=== PATIENT | female | born 2000 | race Caucasian/White ===

== ENCOUNTER 2019-06-20 16:35 | Inpatient (IN) ==
[2019-06-20] MEDS ORDERED: MORPHINE IV ONE (17:28)
[2019-06-20] MEDS ORDERED: ZOFRAN IV ONE (17:28)
--- NOTE | 2019-06-20 17:28 | Diag Imaging Result Doc PS360 ---
EXAM: ANKLE COMPLETE RIGHT 06/20/2019 HISTORY: twisted ankle 4 days ago TECHNIQUE: Right ankle three views COMMENT: There is generalized soft tissue swelling. There is an apparent separate ossification center at the tip of the fibula. No evidence of fracture or dislocation is present. There is a bone island in the cuboid. IMPRESSION: Soft tissue swelling. No evidence of acute bony disease. Electronically signed by Ranjeet Olvera 06/20/2019 5:26 PM
[2019-06-20] MEDS ORDERED: NS 1,000 ML IV ONE ×2 (17:29→18:35)
--- NOTE | 2019-06-20 17:36 | EKG Report ---
Test Performed on : 06/20/2019 5:01:17 PM Test Reason : tachycardia Blood Pressure : / mmHG Vent. Rate : 139 BPM Atrial Rate : 139 BPM P-R Int : 128 ms QRS Dur : 074 ms QT Int : 278 ms P-R-T Axes : 058 054 032 degrees QTc Int : 423 ms Sinus tachycardia. Otherwise normal ECG When compared with ECG of 15-JUL-2018 09:11, Vent. rate has increased BY 57 BPM Unconfirmed Result
--- NOTE | 2019-06-20 18:04 | PROVIDER DOCUMENTATION ---
This chart was entered by Darya Mac Scribe, acting as scribe for Saskia Beck CRNP. HPI-General Adult - General Chief Complaint: Extremity Injury Stated Complaint: FOOT INJURY Time Seen by Provider: 06/20/19 17:00 Source: patient Allergies/Adverse Reactions: Patient Allergies Allergy/AdvReac Type Severity Reaction Status Date / Time No Known Allergies Allergy Verified 01/30/18 23:35 Home Medications: Home Medication List Medication Instructions Recorded Confirmed Last Taken Type NK [No Home Medications] 06/20/19 06/20/19 Unknown History - History of Present Illness -Gen Adult Nature of Presenting Problems: 18 y/o female presents to ED with R foot pain/swelling/redness onset 4 days ago. Pt denies injury. Pt has needle cherise to R AC upon exam. She states it is from the hospital last week. Pt has hx heroin use. Pt is alert and oriented. Location of Pain/Injury: reports: feet Pain Radiation: reports: no radiation Quality of Pain: reports: aching Severity: reports: moderate Onset/Duration: reports: 4 days ago Timing: reports: still present Context/Activities at Onset: reports: none Modifying Factors: worse with: movement, palpation Associated Symptoms: reports: other (R foot pain/swelling/redness) Similar Symptoms Previously?: No Recently seen or treated by another doctor?: No Review of Systems - Adult - REVIEW OF SYSTEMS - ADULT Constitutional: denies: chills, fever Eyes: reports: no symptoms reported Ears, Nose, Mouth & Throat: reports: no symptoms reported Cardiovascular: denies: chest pain, palpitations Respiratory: denies: cough, shortness of breath Gastrointestinal: denies: abdominal pain, diarrhea, nausea, vomiting Genitourinary: reports: no symptoms reported Musculoskeletal: reports: other (R foot pain/swelling/redness). denies: back pain, joint pain Integumentary: reports: no symptoms reported Neurological: denies: dizziness/vertigo, seizure Psychiatric: reports: no symptoms reported Endocrine: reports: no symptoms reported Hematologic/Lymphatic: reports: no symptoms reported Allergic/Immunologic: reports: no symptoms reported All Other Systems: Reviewed and Negative Past History - Adult - PAST MEDICAL HISTORY-ADULT Review of Records: reports: Old Records Reviewed, Nursing Assessment Review, Medications Reviewed Major Childhood Illnesses: reports: denies history Cardiovascular: reports: denies history Respiratory: reports: denies history Gastrointestinal: reports: denies history Obstetrical/Gynecological: reports: denies history Genitourinary: reports: denies history Musculoskeletal: reports: denies history Neurological: reports: denies history Psychiatric: reports: psychiatric problems Endocrine/Immune: reports: denies history Other Conditions: reports: denies history - PRIOR SURGERIES/PROCEDURES Surgical/Procedure History: reports: tonsillectomy - IMMUNIZATION STATUS Childhood Immunizations: See Nurse Assessment Flu Vaccine: See Nurse Assessment - FAMILY HISTORY Family History: reviewed, not pertinent - SOCIAL HISTORY Smoking: less than 1 pack/day Provider spent 3-5 mins advising pt. on dangers of tobacco.: Discussed manners to quit use, and f/u contacts for add'l counseling. Substance Use: opiates Alcohol Use Frequency: never Living Situation: family Physical Exam-General - PHYSICAL EXAM-ADULT Initial Vital Signs Reviewed: Yes - CONSTITUTIONAL General Appearance: appears well, alert, other (tearful) - EYES Eyes: PERRL/EOMI, pink conjunctivae - HEAD, EARS, NOSE, MOUTH & THROAT HENMT: normocephalic/atraumatic, moist mucous membranes, normal ENT inspection - NECK Neck: non-tender, full range of motion - RESPIRATORY Respiratory: chest non-tender, lungs clear, normal breath sounds - CARDIOVASCULAR Cardiovascular: tachycardia - MUSCULOSKELETAL Back Exam: normal inspection, no CVA tenderness, no vertebral tenderness Extremity: normal range of motion, erythema, swelling, tenderness, other (R foot red, warm, swollen, and tender). negative: pulse deficit - SKIN Integumentary: normal color, warm/dry, erythema, swelling, tenderness, warm, other (R foot red, warm, swollen, and tender) - NEUROLOGIC Neurologic: grossly normal - PSYCHIATRIC Psych/Mental Status: normal mood/affect, normal thought content, normal thought process, oriented x 3, tearful Progress - PLAN OF CARE/RESULTS Progress/Plan/Lab Results: Vital Signs - 8 hr 06/20/19 16:48 Temperature 98 F Pulse Rate 143 H Respiratory Rate 18 Blood Pressure 126/83 O2 Sat by Pulse Oximetry 100 Orders Category Date Time Status Cardiac Monitoring DIRECTED Care 06/20/19 17:27 Active IV Insertion ORDERED Care 06/20/19 17:27 Active Notify Physician As Ordered Care 06/20/19 17:27 Active Nursing- Obtain EKG ONCE Care 06/20/19 16:55 Active ANKLE COMPLETE RIGHT [RAD] Stat Exams 06/20/19 16:55 Completed BLOOD CULTURE [BLDCUL] Stat Lab 06/20/19 17:27 Uncollected CBC WITH DIFF [HEME] Stat Lab 06/20/19 17:27 Uncollected CK PROFILE [SP CHEM] Stat Lab 06/20/19 17:27 Uncollected COMPREHENSIVE METABOLIC PANEL [CHEM] Stat Lab 06/20/19 17:27 Uncollected LACTATE, PLASMA [CHEM] Q3H Lab 06/20/19 17:30 Uncollected LACTATE, PLASMA [CHEM] Q3H Lab 06/20/19 20:30 Uncollected LACTATE, PLASMA [CHEM] Q3H Lab 06/20/19 23:30 Uncollected MAGNESIUM [CHEM] Stat Lab 06/20/19 17:27 Uncollected PROTIME WITH INR [COAG] Stat Lab 06/20/19 17:27 Uncollected PTT [COAG] Stat Lab 06/20/19 17:27 Uncollected TROPONIN T Stat Lab 06/20/19 17:[address] W/POSS RFLX CULT [URINALYSIS] Stat Lab 06/20/19 17:27 Uncollected URINE DRUG SCREEN PL Stat Lab 06/20/19 17:28 Uncollected 0.9% Sodium Chloride Inj [Ns] 1,000 ml Med 06/20/19 17:29 Active IV 999 mls/hr Morphine Med 06/20/19 17:28 Discontinued 4 mg IV NOW ONE Ondansetron [Zofran] Med 06/20/19 17:28 Discontinued 4 mg IV NOW ONE Oxygen Device Stat Oth 06/20/19 17:27 Active EKG [EKG] Stat Ther 06/20/19 16:55 Ordered Result Diagrams: 06/20/19 17:40 06/20/19 17:40 - EKG 1 Time of EKG reading by physician:: 17:01 EKG Read and Signed by:: Conrado Gutierrez EKG Interpretation (*Must complete 3 of following elements*): Normal Rate: 139 Rhythm: Sinus tach [place]: normal QRS: normal PA Interval: normal ST Wave: normal - XRAY 1 XRAY: Right XRAY Study: Ankle Impression: See EMR Report ([facility] - [address], [address], [place] [address] [facility] - [address], [place] [address] Department of Imaging Patient: LUKASZ RUIZ Date: 06/20/19MR#: [id number] : 2000ADM Status: PRE ERAcct#: [id number] Age/Sex: 18/FRoom/Bed: Loc: P.ED Ordering Physician: Conrado Gutierrez MD Family Physician: Sukhi Hernández MD Reason for Procedure: twisted ankle 4 days ago Signed EXAM: ANKLE COMPLETE RIGHT 06/20/2019 HISTORY: twisted ankle 4 days ago TECHNIQUE: Right ankle three views COMMENT: There is generalized soft tissue swelling. There is an apparent separate ossification center at the tip of the fibula. No evidence of fracture or dislocation is present. There is a bone island in the cuboid. IMPRESSION: Soft tissue swelling. No evidence of acute bony disease. Electronically signed by Ranjeet Olvera 06/20/2019 5:26 PM 06/20/19 1726 Interpreting Physician: Ranjeet Olvera MD Dictated Date/Time: 06/20/19 1729 cc: Conrado Gutierrez MD; Sukhi Hernández MD) 2 XRAY Study: Chest Impression: See EMR Report (EXAM: CHEST-1 VIEW 06/20/2019 HISTORY: sepsis protocol TECHNIQUE: Erect AP portable at 1807 COMMENT: There is alveolar opacity partially silhouetting the left hemidiaphragm. There is platelike opacity in the left lower lobe. There are no previous studies. IMPRESSION: Lingular pneumonia and atelectasis versus pneumonia in the left lower lobe. Electronically signed by Ranjeet Olvera 06/20/2019 6:03 PM 06/20/19 1803 Interpreting Physician: Ranjeet Olvera MD Dictated Date/Time: 06/20/19 1802 cc: Saskia Beck; Sukhi Hernández MD) - CONSULTS/PCP/HOSPITALIST Notification #1 *Consult/PCP/Hospitalist*: dr mejia Time Discussed: 18:35 Consult Disposition: Admit Departure - Departure Date of Disposition Decision: 06/20/19 Time of Disposition Decision: 18:34 DIAGNOSIS: Septic arthritis, Pneumonia, Cellulitis Disposition: ADMITTED INPATIENT 09 Certified Medical Emergency: Emergent Condition: Stable Referrals and Follow-Ups: Sukhi Hernández MD [Primary Care Provider] - Discharge Education: Steps to Quit Smoking, [id number] - Critical Care Note This patient required my direct & personal management of CC.: No Attestation - Physician/ HERNANDO Attestation Patient care was provided by Advanced Practice Provider:: Yes Advanced Practice Provider:: Saskia Beck Advanced Practice Provider documentation review:: The Mid-level provider documentation, treatment plan and medical decision making was reviewed by the physician who agrees with all treatment and medical decision making by the P. The physician spent face to face time with patient:: Yes Advanced Practice Provider documentation review:: Supervising physician onsite and consulted in the evaluation and care of this patient. The physician did have a face to face encounter with the patient. This chart was documented by the indicated scribe, (Darya Mac Scribe) and accurately reflects the services I performed and decisions made by me, Saskia Beck CRNP, as attested by the provider's signature.
[2019-06-20 18:11] LABS: BASO# 0.03 X1000 (0.0-0.2); BASO% 0.2 % (0.0-0.8); EOS# 0.17 X1000 (0.0-0.7); HEMATOCRIT 35.1 % (37.0-47.0); HEMOGLOBIN 11.6 g/dL (12.0-16.0); IMM GRAN% 1.1 % (0.0-0.5); LYMPH# 1.21 X1000 (1.2-3.4); LYMPH% 6.8 % (20.5-51.1); MCH 27.6 PG (27-31); MCV 83.6 FL (81-99); MONO% 9.5 % (1.7-9.3); MPV 8.2 FL (7.4-10.4); NEUT# 14.55 X1000 (1.4-6.5); NEUT% 81.4 % (42.2-75.2); PLT 492 X1000 (130-400); RDW 14.8 % (11.5-14.5); WBC 17.86 X1000 (4.8-10.8)
[2019-06-20] MEDS ORDERED: VANCOMYCIN 1 GM/NS 1 GM/250 ML IVPB IV ONE ×2 (18:12→22:00)
[2019-06-20] MEDS ORDERED: ROCEPHIN 1 GM in NS 50 ML IV ONE (18:12)
[2019-06-20 18:13] LABS: INR 1.06; PROTIME 14.3 Seconds (11.0-16.0)
[2019-06-20 18:14] LABS: BILIRUBIN URINE NEGATIVE (NEGATIVE); BLOOD URINE NEGATIVE (NEGATIVE); GLUCOSE URINE NEGATIVE (NEGATIVE); KETONE URINE NEGATIVE (NEGATIVE); NITRITE URINE NEGATIVE (NEGATIVE); PROTEIN URINE TRACE mg/dL (NEGATIVE); UROBILINOGEN URINE NORMAL
[2019-06-20 18:14] LABS: PTT 42.2 Seconds (22.3-41.8)
[2019-06-20 18:15] LABS: CLARITY CLEAR (CLEAR); COLOR YELLOW; LEUKOCYTES URINE TRACE (NEGATIVE)
[2019-06-20 18:16] LABS: URINE SOURCE CLEAN CATCH
[2019-06-20 18:17] LABS: ANISOCYTOSIS 1+; BANDS 3 % (0-1); LYMPHS 10 % (21-51); MONO 5 % (1-9); SEGS 82 % (42-75)
[2019-06-20 18:17] LABS: URINE BACTERIA 1+ /HFP; URINE CAST NONE SEEN /LPF; URINE CRYSTAL NONE SEEN /HPF; URINE EPITHELIAL CELLS >10 /HPF (<10); URINE RBC <10 /HPF (<10); URINE YEAST NONE SEEN /HPF
[2019-06-20 18:24] LABS: UR AMPHETAMINES QUAL NONE DETECTED (NONE DETECT); UR BARBITUATES QUAL NONE DETECTED (NONE DETECT); UR BENZODIAZEPIN QUAL NONE DETECTED (NONE DETECT); UR CANNABINOIDS QUAL PRESUMPTIVE POSITIVE (NONE DETECT); UR COCAINE QUAL NONE DETECTED (NONE DETECT); UR METHADONE QUAL NONE DETECTED (NONE DETECT); UR METHAMPHETAMINE QUAL NONE DETECTED (NONE DETECT); UR OPIATES QUAL NONE DETECTED (NONE DETECT); UR OXYCODONE QUAL NONE DETECTED (NONE DETECT); UR PCP QUAL NONE DETECTED (NONE DETECT); UR PROPOXYPHENE QUAL NONE DETECTED (NONE DETECT); UR TCA QUAL PRESUMPTIVE POSITIVE (NONE DETECT)
[2019-06-20 18:26] LABS: AGAP 17; ALBUMIN 3.7 g/dL (3.5-5.0); ALKALINE PHOSPHATASE 177 U/L (32-104); BUN 6 mg/dL (8-22); CHLORIDE 97 mmol/L (98-107); CK PROFILE 22 U/L (24-173); COSMO 271; CREATININE 0.5 mg/dL (0.5-0.9); ESTIMATED GFR > 60; GLUCOSE 95 mg/dL (70-104); GOT 15 U/L (10-30); GPT 18 U/L (10-36); MAGNESIUM 1.5 mg/dL (1.5-2.7); POTASSIUM 4.3 mmol/L (3.5-5.1); SODIUM 137 mmol/L (136-145); TCO2 24 mmol/L (25-35); TOTAL PROTEIN 7.3 g/dL (6.3-8.3)
[2019-06-20] MEDS ORDERED: MORPHINE IV PRN (18:35)
[2019-06-20] MEDS ORDERED: DILAUDID IV ONE (18:47)
[2019-06-20] MEDS: TYLENOL PO PRN (19:51)
[2019-06-20] MEDS ORDERED: DILAUDID IV SCH (20:25)
[2019-06-20] MEDS ORDERED: VANCOMYCIN IV PER PHARMACY MISC SCH (20:25)
[2019-06-20] MEDS ORDERED: TORADOL IV ONE (22:16)
[2019-06-20] MEDS: SEROQUEL PO PRN (22:25)
[2019-06-20] MEDS: DILAUDID IV PRN (23:58)
[2019-06-21] MEDS: DILAUDID IV PRN ×7 (02:59→23:43)
[2019-06-21] MEDS: TYLENOL PO PRN ×3 (03:17→21:09)
[2019-06-21] MEDS: VANCOMYCIN 1,400 MG in NS 250 ML IV SCH ×2 (09:23→21:09)
[2019-06-21] MEDS: TORADOL IV PRN ×2 (11:14→18:21)
--- NOTE | 2019-06-21 11:32 | HISTORY AND PHYSICAL ---
PRIMARY CARE PHYSICIAN: Dr. Hernández. CHIEF COMPLAINT: Right foot pain and swelling. HISTORY OF PRESENTING ILLNESS: This is a 18-year-old female, who presented to [facility] ER with complaints of right foot pain, swelling, and redness for 4 days that had progressively worsened. Denies any recent injury. Her workup showed a right ankle x-ray with soft tissue swelling, a chest x-ray that showed lingular pneumonia and atelectasis versus pneumonia in the left lower lobe, with a white blood cell count of 17.86. Her urine drug screen was presumptive positive for tricyclics and cannabinoids. She states that she has had a history of heroin abuse, but has been clean for some time now, but was noted to have a needle cherise to her right AC upon exam, but states that was from being in the hospital last week, but we do not have any records of her being in the [facility] this past week so she is being admitted for further evaluation and treatment. PAST MEDICAL HISTORY: Psychiatric problems and polysubstance abuse. PAST SURGICAL HISTORY: Tonsillectomy. FAMILY HISTORY: Reviewed and noncontributory. SOCIAL HISTORY: She currently lives with family. Smokes a half a pack of cigarettes a day. Denied any alcohol use and substance abuse. Her urine drug screen was positive for tricyclics and cannabinoids. She has had a history also of heroin abuse with a noted needle cherise to her right AC, but denies any heroin use currently. DIAGNOSTIC STUDIES: Laboratory data showed a white blood cell count of 17.86, hemoglobin 11.6, hematocrit 35.1, platelets 492,000. PT 14.3, INR 1.06. Sodium 137, potassium 4.3, chloride 97, CO2 of 24, BUN of 6, creatinine of 0.5, glucose of 95. Uric acid of 1.5. Magnesium 1.5. Creatine kinase of 22, troponin of less than 0.010. Plasma lactate of 2. Urinalysis was negative except for 1+ bacteria and greater than 10 epithelial cells so was most likely contaminated. Urine drug screen was presumptive positive for tricyclics and cannabinoids. Her blood cultures came back 2/2 positive with gram-positive cocci. REVIEW OF SYSTEMS: She denied any fever. She has had chills. Denied any blurred vision, dizziness, chest pain, coughing, shortness of breath. She denied any abdominal pain, constipation, diarrhea, or burning or hurting with urination. She is positive for pain to her right foot. PHYSICAL EXAMINATION: VITAL SIGNS: On arrival she had a temperature of 98 degrees, pulse of 143, respirations 18, blood pressure 126/83, and she does remain tachycardic this morning at 140. GENERAL: This is a 18-year-old female, who is sitting up in the bed and answers questions appropriately. HEMNT: Normocephalic, atraumatic. Normal ENT inspection. Oropharynx and nares are clear. EYES: Pupils are equal, round, and reactive to light and accommodation. Extraocular movements are intact. NECK: Normal inspection. Normal range of motion. LUNGS: Clear to auscultation bilaterally with equal lung expansion and chest wall movement. HEART: Tachycardic. No murmurs, rubs, or gallops. ABDOMEN: Soft, nontender, nondistended. Bowel sounds are present x4 quadrants. MUSCULOSKELETAL: She has 5/5 strength x4. EXTREMITIES: She is noted to her right foot to have erythema, edema, and warmth to touch. NEUROLOGICAL: The cranial nerves 2 through 12 appear grossly intact. ASSESSMENT: 1. Septic arthritis. 2. Bacteremia. 3. Leukocytosis. 4. Left lower lobe pneumonia. 5. Tobacco abuse. 6. Polysubstance abuse. PLAN: She was admitted to the medical unit at [place], placed on a regular diet. Her urine culture is pending. Blood cultures have grown out gram-positive cocci x2, so we are awaiting that sensitivity. She is on vancomycin per Pharmacy protocol, Rocephin 1 gram IV q.24 h., Dilaudid 1 mg IV q.3 h. p.r.n. for pain 7/10 to 10/10,m [place] 10 mg 1 p.o. q.3 h. p.r.n. for a pain of 1/10 to 6/10. We will also give some Toradol 30 mg IV q.6 h. p.r.n. for a pain of 5/10 to 7/10. Further orders after seen by attending and we will recheck a CBC, BMP in the a.m. Dictated by WOODROW Blanco for Noe Morton MD cc: WOODROW Blanco MD
[2019-06-21] MEDS: NS 1,000 ML IV SCH ×2 (12:31→23:43)
[2019-06-21] MEDS: NORCO-10 PO PRN (14:58)
[2019-06-21] MEDS: ROCEPHIN 1 GM in NS 50 ML IV SCH (17:08)
--- NOTE | 2019-06-21 19:09 | HISTORY AND PHYSICAL ---
ADDENDUM: Patient seen and examined by myself. Full note dictated and discussed with nurse practitioner. Patient presented to the hospital with pain and swelling in her right foot for the last several days, continued to worsen. We are going to admit her to the hospital, place her on antibiotics. She certainly may need an I and D if this does not improve. We will use Toradol as this helps, and will follow. Please see full note. cc: Noe Morton MD
[2019-06-22] MEDS: TORADOL IV PRN ×4 (01:49→18:10)
[2019-06-22] MEDS: DILAUDID IV PRN ×6 (03:36→21:57)
[2019-06-22] MEDS: TYLENOL PO PRN ×2 (05:00→10:59)
[2019-06-22 07:50] LABS: AGAP 11; BUN 6 mg/dL (8-22); CALCIUM 7.9 mg/dL (8.8-10.2); CHLORIDE 102 mmol/L (98-107); COSMO 268; CREATININE 0.4 mg/dL (0.5-0.9); ESTIMATED GFR > 60; GLUCOSE 99 mg/dL (70-104); POTASSIUM 3.6 mmol/L (3.5-5.1); SODIUM 135 mmol/L (136-145); TCO2 22 mmol/L (25-35)
[2019-06-22] MEDS: NS 1,000 ML IV SCH ×3 (09:15→15:36)
[2019-06-22] MEDS: VANCOMYCIN 1,400 MG in NS 250 ML IV SCH (09:17)
[2019-06-22 09:19] LABS: BASO# 0.02 X1000 (0.0-0.2); BASO% 0.1 % (0.0-0.8); EOS# 0.08 X1000 (0.0-0.7); EOS% 0.5 % (0.0-10.0); HEMATOCRIT 26.6 % (37.0-47.0); HEMOGLOBIN 8.8 g/dL (12.0-16.0); IMM GRAN# 0.15 X1000 (0.0-0.04); IMM GRAN% 0.9 % (0.0-0.5); LYMPH# 1.37 X1000 (1.2-3.4); LYMPH% 7.8 % (20.5-51.1); MCH 27.5 PG (27-31); MCHC 33.1 g/dL (33-37); MCV 83.1 FL (81-99); MONO# 1.57 X1000 (0.11-0.59); MPV 8.3 FL (7.4-10.4); NEUT# 14.28 X1000 (1.4-6.5); NEUT% 81.7 % (42.2-75.2); PLT 467 X1000 (130-400); WBC 17.47 X1000 (4.8-10.8)
[2019-06-22 09:57] LABS: LYMPHS 4 % (21-51); MONO 6 % (1-9); SEGS 90 % (42-75)
[2019-06-22] MEDS: XANAX PO PRN ×2 (10:59→23:47)
--- NOTE | 2019-06-22 14:35 | ORTHOPAEDICS CONSULTATION ---
DATE: 06/22/2019 CHIEF COMPLAINT: Right foot pain and swelling. HISTORY OF PRESENT ILLNESS: This is a 18-year-old female who presented to the [facility] ER with right foot pain, swelling and redness for about 4 days. It has continually gotten worse. She denies any recent injury. Her mother is at bedside at this time and states that she has been having some pain on her right lateral ankle for the past couple days. X-rays were performed in the emergency department and show soft tissue swelling. Chest x-ray showed possible pneumonia with atelectasis in the left lower lobe. A UDS was performed and she was positive for tricyclic antidepressants and marijuana. The patient does report some history of drug use in the past with heroin. PAST MEDICAL HISTORY: Patient states she has some psychiatric problems and substance abuse. PAST SURGICAL HISTORY: She has had a tonsillectomy. FAMILY HISTORY: Noncontributory. SOCIAL HISTORY: The patient lives at home with family. She smokes half pack a day of cigarettes. She denies alcohol use, but does report past substance abuse. DIAGNOSTICS: Labs: White blood cells 17.47, hemoglobin 8.8, hematocrit 26.6, platelets 467,000. Sodium 135, potassium 3.6, chloride 102, BUN 6, creatinine 0.4, uric acid 7.9. Urine showed trace white blood cells, also positive for epithelial cells. UDS showed positive for tricyclics and cannabinoids. REVIEW OF SYSTEMS: A 12-point review of systems was reviewed and all pertinent positives listed in HPI. PHYSICAL EXAMINATION: General: Patient is awake, alert, sitting on the hospital bed, in some acute distress and pain. HEENT: Head is normocephalic, atraumatic. Normal ENT inspection. Eyes: Equal, round and reactive to light. Neck: Supple. Lungs: There is equal chest expansion rise and fall. Heart: There is some tachycardia. Abdomen: Soft, nontender. Musculoskeletal: Right lower extremity is tender to the calf region with some warmth. There is decreased range of motion to the right foot and ankle with some severe edema at this time. There are palpable pedal pulses. There is good capillary refill in toes. There is some redness and ecchymosis noted to the right lateral ankle. I was unable to fully examine the right lower extremity due to her pain tolerance. ASSESSMENT: 1. Septic arthritis. 2. [place] A fracture of the right distal fibula. 3. Left lower lobe pneumonia. 4. Tobacco abuse. 5. Polysubstance abuse. PLAN: We plan to obtain an ultrasound of the right lower extremity at this time. We will go ahead and get an MRI of the right ankle. We will have her transferred to the [facility], at this time. We will continue her antibiotics per the hospitalist. If the swelling does not improve in the right ankle after the MRI, then we will likely obtain an aspiration of the joint and send it off for cultures. We will check back on her later. Dictated by WOODROW El for Torito Bruno MD cc: WOODROW El MD
[2019-06-22] MEDS ORDERED: TYLENOL PO PRN (15:55)
[2019-06-22] MEDS ORDERED: NORCO-10 PO ONE (16:12)
[2019-06-22] MEDS: ROCEPHIN 1 GM in NS 50 ML IV SCH (18:12)
[2019-06-22] MEDS: LOVENOX SUBQ SCH (20:44)
[2019-06-22] MEDS: SEROQUEL PO PRN (20:45)
[2019-06-22] MEDS: NORCO-10 PO PRN (20:45)
[2019-06-22] MEDS ORDERED: VANCOMYCIN 1,400 MG in NS 250 ML IV SCH (21:00)
--- NOTE | 2019-06-22 21:31 | PROGRESS NOTE ---
DATE: 06/22/2019 SUBJECTIVE: Ms. Malone was transferred to [facility] for persistent right lower extremity right foot pain, with marked tachycardia and orthopedic evaluation. At the time of my evaluation, the patient's mother is at bedside. The patient is currently wincing in pain. She denies using any recreational drugs through IV line. She states she used to smoke marijuana and cigarettes. OBJECTIVE: Vital Signs: Currently, temperature of 100.9 degrees, pulse of 145, respiratory rate 30, blood pressure 160/110. She is saturating 97% on 3 L nasal cannula. General: She is in excruciating pain. ORAL CAVITY: Dry.Lungs: Air entry bilaterally equal. No wheeze, rhonchi. She does appear to have left lower lobe crackles. Cardiovascular: S1, S2 normal. Tachycardic. Appears sinus. No murmur or gallop. Abdomen: Soft, nontender. Extremities: No lower extremity edema. She has significant swelling of the right foot and ankle region with ecchymosis. The pulse was dopplerable. She is excruciatingly tender in the right foot and examination is limited. She is able to wiggle her toes. LABS: Suggestive of leukocytosis, normocytic anemia, thrombocytosis. She does appear to have normal kidney function. MICROBIOLOGY: Blood culture positive for gram-positive cocci. Repeat blood cultures have been drawn. ASSESSMENT AND PLAN: Gram-positive sepsis. The source could be left lower lobe pneumonia versus right foot septic arthritis versus osteomyelitis versus intravenous drug use, though patient denies using it recently. Continue intravenous vancomycin and intravenous ceftriaxone, and follow up repeated blood culture results. Continue intravenous fluids with normal saline. Continue intravenous hydromorphone, oral [place], intravenous ketorolac for pain management. I will also follow up with echocardiogram to rule out infective endocarditis. I will also follow up with Infectious Disease and Orthopedic recommendations to see if she would need arthrocentesis in future. MRI of lower extremity is pending to rule out acute osteomyelitis. More than 30 minutes of critical care time was spent taking care of this patient. I continue to monitor the patient inside ICU for marked tachycardia and hemodynamic monitoring. Plan of care discussed with the patient's mother. All of her questions have been answered. cc: Von Hernandez MD
--- NOTE | 2019-06-22 21:42 | PROGRESS NOTE ---
DATE: 06/22/2019 SUBJECTIVE: Patient is still having mild shortness of breath.. It hurts when she takes a deep breath. Still having lots of pain in her right ankle. Notes her pain medications help, but does not last long enough. She was noted overnight to have a low oxygen. In fact, she had to be on 4 L O2. I talked with her about incentive spirometry. OBJECTIVE: Vital Signs: Temperature 99 degrees, T-max 101.3 degrees, pulse 114, respiratory 18, BP 155/85, saturation 97% on 4 L. General: Patient is awake, alert. She is lying in bed. She is currently in no respiratory distress although, she is on oxygen. HEENT: Normocephalic. Neck: Supple. Cardiovascular: Regular rate, currently at 99, and she has had multiple episodes of tachycardia overnight. Chest: Decreased breath sounds secondary to pain. She has no wheezing. Abdomen: Soft, nondistended. Extremities: Moves all extremities. Right ankle and foot are still hurting. Feels swollen, almond cutting machine tender. ASSESSMENT: 1. Septic arthritis. 2. Bacteremia. She is currently growing gram-positive cocci. 3. Left lower lobe pneumonia. 4. Leukocytosis. 5. History of polysubstance abuse. 6. Hypoxic respiratory failure. PLAN: We will continue patient in the hospital. Continue to follow. Discussed with her that she has to start using incentive spirometry. She has to start deep breathing due to her pneumonia, and will follow. Will ask Orthopedics to evaluate whether her ankle needs to be drained. cc: Noe Morton MD
[2019-06-22] MEDS: VANCOMYCIN 2,000 MG in NS 500 ML IV SCH (21:57)
[2019-06-23] MEDS: NS 1,000 ML IV SCH ×5 (00:01→19:08)
[2019-06-23] MEDS: TORADOL IV PRN ×4 (00:02→20:13)
[2019-06-23] MEDS: DILAUDID IV PRN ×6 (01:47→20:13)
[2019-06-23] MEDS: NORCO-10 PO PRN ×2 (03:24→19:23)
[2019-06-23 06:33] LABS: BASO# 0.01 X1000 (0.0-0.2); BASO% 0.1 % (0.0-0.8); EOS% 0.6 % (0.0-10.0); HEMATOCRIT 24.1 % (37.0-47.0); HEMOGLOBIN 8.1 g/dL (12.0-16.0); IMM GRAN# 0.14 X1000 (0.0-0.04); IMM GRAN% 0.8 % (0.0-0.5); LYMPH# 1.97 X1000 (1.2-3.4); LYMPH% 11.2 % (20.5-51.1); MCH 27.5 PG (27-31); MCHC 33.6 g/dL (33-37); MCV 81.7 FL (81-99); MONO# 1.32 X1000 (0.11-0.59); MONO% 7.5 % (1.7-9.3); NEUT# 14.08 X1000 (1.4-6.5); NEUT% 79.8 % (42.2-75.2); PLT 466 X1000 (130-400); RBC 2.95 XMIL (4.2-5.4); RDW 14.9 % (11.5-14.5); WBC 17.62 X1000 (4.8-10.8)
[2019-06-23 06:44] LABS: AGAP 10; BUN 6 mg/dL (8-22); CALCIUM 8.3 mg/dL (8.8-10.2); CHLORIDE 102 mmol/L (98-107); COSMO 264; CREATININE 0.4 mg/dL (0.5-0.9); ESTIMATED GFR > 60; GLUCOSE 92 mg/dL (70-104); POTASSIUM 3.6 mmol/L (3.5-5.1); SODIUM 133 mmol/L (136-145); TCO2 21 mmol/L (25-35)
[2019-06-23 07:10] LABS: LYMPHS 18 % (21-51); MONO 6 % (1-9); SEGS 76 % (42-75)
--- NOTE | 2019-06-23 07:20 | ORTHOPAEDICS PROGRESS NOTE ---
DATE: 06/23/2019 SUBJECTIVE: Ms. Malone is lying in bed this morning. Complains of pain in the right ankle. OBJECTIVE: Right lower extremity exam, she has a large area of swelling on the lateral aspect of the ankle. There is some surrounding erythema to that area. She is tender to palpation all around that area as well. ASSESSMENT: Right ankle abscess versus osteomyelitis. PLAN: I discussed Ms. Malone about her ankle. We really need to get the MRI as soon as possible to really assess for an abscess and the extent of it for possible ankle involvement, and also any osteomyelitis involvement. We want to address everything from a surgical standpoint at the same time. I did make her NPO today. If the MRI does come back, we could possibly do it today and drain everything out, so we will get the MRI as soon as we can and I will evaluate after that. cc: Torito Bruno MD
[2019-06-23 07:34] LABS: ALB/GLOB RATIO 0.5; DIRECT BILIRUBIN 0.1 mg/dL (0.00-0.20); TOTAL BILIRUBIN 0.39 mg/dL (0.20-1.00); TOTAL PROTEIN 5.7 g/dL (6.3-8.3)
--- NOTE | 2019-06-23 09:44 | PROGRESS NOTE ---
DATE: 06/23/2019 INTERVAL HISTORY: Ms. Malone continues to have a fever spikes, episodes of tachycardia and right foot pain. However, the pain is, she states, slightly better than before. She does have a drop in her hemoglobin. Her MRI is currently pending. SUBJECTIVE: Ms. Malone states that she used to inject heroin almost every day until approximately 2 months ago. Since then, she has only been smoking marijuana and has not used intravenous drugs since probably 2 months. She states that she has become very tolerant to Dilaudid and it does not help with her pain. We discussed about her current clinical condition, possible osteomyelitis, and answered all of her questions. VITALS: Temperature of 100 degrees, pulse of 127, respiratory 34, blood pressure 150/79. She is saturating 97% on 2 L nasal cannula. PHYSICAL EXAMINATION: General: She is in mild distress because of the pain. HEENT: Mild conjunctival pallor. No cyanosis, clubbing, or icterus. Oral cavity is moist. Lungs: Air entry bilaterally equal. No wheeze, rhonchi, crackles. Cardiovascular: S1, S2 normal. Tachycardic. No murmur, rub, or gallop. She does have left inframammary crackles. Abdomen: Soft, nontender. She has significant edema affecting right foot and right distal leg with significant tenderness. There is also a pustule on the right lateral lower leg. She is able to wiggle her toes bilaterally and movement is slightly better than yesterday. LABS: Suggestive of leukocytosis, normocytic anemia, thrombocytosis. She does have normal kidney function and normal bilirubin. Initial blood cultures are growing methicillin- resistant Staphylococcus aureus (MRSA). ASSESSMENT AND PLAN: 1. Methicillin-resistant Staphylococcus aureus (MRSA) sepsis likely leading to MRSA left lower lobe pneumonia with suspicion of MRSA right lower leg or foot osteomyelitis or septic arthritis in the setting of prior history of intravenous drug use. The patient was counseled about not using intravenous drugs. I will continue intravenous vancomycin and I will appreciate Infectious Disease recommendation about discontinuing intravenous ceftriaxone. MRI of right lower extremity is pending following which Orthopedic Surgery will plan surgical evaluation. 2. Acute hypoxic respiratory failure due to left lower lobe likely hematogenously spread pneumonia: Continue IV Vancomycin and oxygen to keep SPO2 >94%. Follow up ECHO to rule out infective endocarditis. 3. Right foot Pain: Follow up MRI, US DVT and ortho recs about need for surgery. Continue intravenous hydromorphone, oral [place] and intravenous ketorolac as needed. I will also continue intravenous fluid resuscitation and quetiapine as needed. Follow up with right lower extremity ultrasound to rule out deep vein thrombosis and echocardiogram to rule out infective endocarditis. Care discussed with the patient. All of her questions have been answered. Yesterday I had extensive discussion about plan of care with the patient's mother. More than 30 minutes of critical care time was spent in taking of this patient. cc: Von Hernandez MD MTDD
--- NOTE | 2019-06-23 09:51 | Diag Imaging Result Doc PS360 ---
EXAM: MRI LOWER EXT JT W/O CON-RIGHT 06/22/2019 HISTORY: Right Ankle pain/Edema. TECHNIQUE: Sagittal STIR, T1, coronal T1 and T2, oblique T2 and proton density fat sat COMMENT: There is heterogeneous signal intensity in the distal fibula. This includes increased T2-weighted signal intensity and areas of decreased T1-weighted signal intensity. No definite fractures are identified. There is considerable soft tissue swelling around the distal fibula. The peroneal tendons appear to be intact. There appears to be subperiosteal fluid around the fibula. The anterior talofibular ligaments and the calcaneofibular ligament are not well demonstrated and may be torn. IMPRESSION: Lateral soft tissue edema, fibular marrow edema, and probable tears of the anterior talofibular and calcaneofibular ligaments. Electronically signed by Ranjeet Olvera 06/23/2019 9:48 AM
[2019-06-23] MEDS: VANCOMYCIN 2,000 MG in NS 500 ML IV SCH ×2 (10:02→23:12)
[2019-06-23] MEDS ORDERED: TORADOL IV ONE (10:42)
--- NOTE | 2019-06-23 12:39 | INFECTIOUS DISEASE CONSULT REP ---
DATE: 06/23/2019 CONCLUSION: The patient is a drug addict and injected herself which caused methicillin-resistant Staph aureus and hematogenously, the infection spread to the patient's right ankle causing a septic arthritis and osteomyelitis of the ankle. RECOMMENDATIONS: I agree with treating the patient with vancomycin. I think Rocephin can be discontinued. I plan to treat the patient for a total of 8 weeks and day 1 of treatment will be the first day that the patient's repeat blood cultures are sterile. I am also going to order an echocardiogram on the patient to especially to look for vegetations. DISCUSSION: The patient was having a lot of pain and she was unable to provide much of a history. She said that she had a swollen painful ankle that started approximately 10 days ago. Laboratory data thus far show the blood cultures are growing methicillin-resistant Staph aureus. [place] [address], hemoglobin 8.1, and platelet count 466,000. Creatinine is 0.4, GFR is greater than 60. The patient's urinalysis showed white cells and bacteria. The patient's test was negative. Urine for chlamydia and gonorrhea was negative. MRI of the ankle showed soft tissue swelling and marrow edema. Blood cultures are growing methicillin-resistant Staph aureus. The urine culture is negative. REVIEW OF SYSTEMS: Unable to be obtained from the patient. BLOCK SETTER GYPSUM HISTORY: The patient has never been . She has an implant in her arm which supplies her with control. PREVIOUS HOSPITALIZATIONS AND OPERATIONS: None. MEDICAL DISEASES: Positive for drug addiction. INFECTIOUS DISEASE HISTORY: Positive for urinary tract infection. Negative for pneumonia. FAMILY HISTORY: Unable to be obtained from the patient. SOCIAL HISTORY: The patient lives with her mother. She smokes cigarettes and does drugs including intravenous medications. She does not drink alcoholic beverages. The patient is not in school and she does not have a job. Where she lives, there are dogs and cats, chickens and pigs. HOME MEDICATIONS: She is on no home medications. PHYSICAL EXAMINATION: Vital signs: Temperature was 102 degrees, now it is down to 98.8 degrees, pulse 130, respirations 28, blood pressure 130/70. The patient weighs 140 pounds. General: This is a healthy-appearing, young female. She is having a lot of pain with her ankle. Head/eyes/ears/nose/throat: She appeared to be able to hear my spoken words and see near objects. I did not notice any white patches on her tongue. Neck: No meningismus. Lungs: Clear to auscultation. Cardiovascular: Regular heart rate. I did not hear a murmur. Abdomen: Soft and nontender. Neurologic: The patient is lying in bed. She is in a lot of pain. She did answer questions. She could move her extremities. She did not want to move her right leg at all because it was painful to do so. Integument: No rash noted. Thank you for the consultation. cc: Rome Frederick MD
--- NOTE | 2019-06-23 12:50 | ECHO REPORT ---
ORDER DATE: 06/22/2019 INDICATION: CVA, history of polysubstance abuse. FINDINGS: 1. The right atrium appears normal in size at 3.9 cm. 2. There is mild tricuspid regurgitation. RV systolic pressure of 47. 3. Normal RV size and systolic function. 4. No significant pulmonic insufficiency. 5. Normal left atrial size with a volume index of 14, dimension of 2.8 cm. 6. No mitral valve prolapse. Trace mitral regurgitation. 7. Normal LV size, end-diastolic dimension of 4.6. Normal wall thicknesses with a posterior and interventricular septal wall thickness of 0.8 cm each. Normal LV systolic function. Estimated EF of 60-65% with normal wall motion. 8. Aortic valve opens well. No evidence of stenosis or insufficiency. 9. Aorta appears normal in visualized segments. 10. No pericardial effusion identified. cc: MD Royal Guthrie MD
--- NOTE | 2019-06-23 13:29 | Extremity Venous Study ---
PROCEDURE NAME: Venous U/S Right Leg - 06/22/2019 RIGHT LOWER EXTREMITY VENOUS STUDY: REQUESTING PHYSICIAN: Dr. Morton. WIRE WINDING MACHINE TENDER: Jacey. INDICATION: Edema, pain and redness right lower extremity. EQUIPMENT: [email or web address] Vivid E9 ultrasound system a 9 L-D transducer. FINDINGS: Images of the right lower extremity venous system with a comparison shot to the left common femoral vein were obtained in both sagittal and transverse planes. Doppler was used to evaluate veins for spontaneity, phasicity, respiratory excursion, and digital augmentation. RESULTS: No obvious superficial or deep venous thrombosis noted. This is a technically difficult study secondary to patient being uncooperative secondary to pain per the irrigation technician's note, but again, no obvious superficial or deep venous thrombosis noted. INTERPRETATION: Limited study but no obvious superficial or deep venous thrombosis noted. cc: MD Carson Estrada CRNP
[2019-06-23] MEDS ORDERED: DIPRIVAN 1% ONE (15:07)
[2019-06-23] MEDS ORDERED: VERSED ONE (15:07)
[2019-06-23] MEDS ORDERED: QUELICIN (DOSE) ONE (15:07)
[2019-06-23] MEDS ORDERED: XYLOCAINE-MPF 2% ONE (15:25)
[2019-06-23] MEDS ORDERED: FENTANYL ONE (15:46)
[2019-06-23] MEDS ORDERED: DILAUDID ONE (15:50)
[2019-06-23] MEDS ORDERED: TORADOL ONE (16:03)
[2019-06-23] MEDS ORDERED: ZOFRAN ONE (16:03)
[2019-06-23] MEDS ORDERED: DECADRON ONE (16:03)
[2019-06-23] MEDS: PERCOCET-5 PO PRN (17:30)
[2019-06-23] MEDS ORDERED: PRILOSEC PO ONE (18:46)
--- NOTE | 2019-06-23 19:34 | OPERATIVE NOTE ---
PROCEDURE DATE: 06/23/2019 PREOPERATIVE DIAGNOSIS: Right ankle infection with abscess. POSTOPERATIVE DIAGNOSIS: Right ankle infection with abscess. PROCEDURE: Right ankle irrigation debridement. SURGEON: Dr. Torito Bruno. PSYCHIATRIC LPN: Deshaun Vu RN. ANESTHESIA: General with LMA. TOURNIQUET TIME: Around 1 hour. IMPLANTS: None. BLOOD LOSS: 25 mL. SPECIMENS: Cultures were taken from the lateral ankle soft tissue in the fibula. DISPOSITION: To PACU, hemodynamically stable. INDICATION FOR PROCEDURE: Ms. Malone is a 18-year-old female, who was admitted to the ICU. She had developed some ankle swelling here recently and then ended up becoming bacteremic and septic. She has been admitted to the ICU for that. She ended up getting an MRI. That was performed this morning, which did show an abscess laterally and it looked like some osteomyelitis of her distal fibula. I discussed with her family about operative intervention. They expressed understanding and wished to proceed. DESCRIPTION OF PROCEDURE: Ms. Malone was identified in the preoperative holding area. The right foot was marked as correct surgical site. She was then wheeled to the operative room, placed supine on the operating table. All bony prominences well padded. She was induced under general anesthesia. LMA was placed. Tourniquet was placed to the right thigh. Right lower extremity prepped chlorhexidine, gluconate scrub and then ChloraPrep, and draped in normal sterile fashion. Surgical pause was performed. We identified the correct patient, correct side, and the correct procedure. She had already been getting preop antibiotics regularly. Starting with a longitudinal incision over the distal fibula, rods that got through the subcutaneous tissue. There was just a lot of thick purulent material that started pouring out. We culture that. We then evacuated all that pus. We went really all the way down to bone. Really investigating the whole way. There was erosion into the capsule between the ATFL and the AITFL. We went straight down into the ankle joint. I opened up the periosteum and there was purulent material in between the bone and the periosteum, and so we scraped out all that purulence through there using a curette. We opened up the peroneal tendons. There was a little bit of pus in the peroneal tendons, but not a lot. There was erosion of a lot of that lateral ankle ligament soft tissue and her retinaculum. Once we exposed everything, I then used a curette and a rongeur and got rid of all the purulent appearing material up the fibula and then also around the peroneals and down around the lateral ankle ligaments. After we performed a thorough debridement, we then made an incision on the medial aspect. There was not a lot of purulence there, but we did dissect down to the joint line and then we were able to irrigate that joint copiously with normal saline. Having both portals open, we got the water flow through and through very well, really getting all the purulence out of the ankle joint itself. I have also irrigated all the soft tissues of the peroneal tendons, the fibula itself. I did drill 2 holes in the fibula and actually took cultures down inside the fibula to see if there was infection down in the bone. I did not get a lot of purulence when I drilled the fibula, so I did not trough that lateral fibula, but I did make 2 drill holes and then irrigated all down through there. We irrigated copiously with normal saline, the lateral and medial sides, until everything looked nice and clean. I did not see any more purulence anywhere. I really pushed on the foot as well and even down the leg and did not get any more purulence at this point. I then used a Maxon suture and approximated some of the periosteum that I could to cover the fibula. At the very distal aspect of the fibular, the periosteum had all eroded away. I then closed a little bit of the capsule over the joint laterally, but not medially. I then used 2-0 Maxon and just a few those to approximate the subcutaneous tissue and then used carlos on the skin. Adaptic, 4x4s, ABD, soft roll, and posterior splint was applied. Tourniquet was let down. She had good capillary refill return to the toes. She was then awoken from general anesthesia, moved to her own bed and taken to PACU in stable condition. PLAN: Postoperatively, she will be nonweightbearing to the right lower extremity. I did discuss with her family that this is not going to be an easy road for her. Her lateral ankle ligaments were eroded a lot and so we will have to watch for ankle instability manager terminal. We will have to watch for posttraumatic ankle osteoarthritis secondary to infection in the ankle joint and we will also watch for viability of the distal fibula. She will remain on IV antibiotics per Dr. Frederick's team and we will also check her in the morning. cc: Torito Bruno MD
[2019-06-23] MEDS: LOVENOX SUBQ SCH (20:13)
[2019-06-23] MEDS: SEROQUEL PO PRN (20:14)
[2019-06-24] MEDS: DILAUDID IV PRN ×7 (00:30→21:32)
[2019-06-24] MEDS: PERCOCET-5 PO PRN ×4 (00:30→19:53)
[2019-06-24] MEDS: TORADOL IV PRN ×3 (02:53→19:53)
[2019-06-24] MEDS: NORCO-10 PO PRN (04:31)
[2019-06-24] MEDS: PRILOSEC PO SCH ×2 (05:51→06:21)
[2019-06-24] MEDS: NS 1,000 ML IV SCH ×2 (06:09→12:38)
[2019-06-24 06:12] LABS: BASO# 0.01 X1000 (0.0-0.2); BASO% 0.1 % (0.0-0.8); HEMATOCRIT 23.4 % (37.0-47.0); HEMOGLOBIN 7.9 g/dL (12.0-16.0); IMM GRAN# 0.13 X1000 (0.0-0.04); IMM GRAN% 0.9 % (0.0-0.5); LYMPH# 1.02 X1000 (1.2-3.4); LYMPH% 7.2 % (20.5-51.1); MCH 27.8 PG (27-31); MCHC 33.8 g/dL (33-37); MCV 82.4 FL (81-99); MONO# 0.65 X1000 (0.11-0.59); MONO% 4.6 % (1.7-9.3); MPV 8.7 FL (7.4-10.4); NEUT% 87.2 % (42.2-75.2); PLT 437 X1000 (130-400); RBC 2.84 XMIL (4.2-5.4); RDW 14.8 % (11.5-14.5); WBC 14.21 X1000 (4.8-10.8)
[2019-06-24 06:24] LABS: AGAP 9; BUN 6 mg/dL (8-22); CALCIUM 8.9 mg/dL (8.8-10.2); CHLORIDE 106 mmol/L (98-107); COSMO 276; CREATININE 0.4 mg/dL (0.5-0.9); ESTIMATED GFR > 60; GLUCOSE 183 mg/dL (70-104); SODIUM 137 mmol/L (136-145); TCO2 22 mmol/L (25-35)
[2019-06-24 06:43] LABS: LYMPHS 8 % (21-51); MONO 6 % (1-9); SEGS 86 % (42-75)
[2019-06-24] MEDS: XANAX PO PRN ×2 (07:20→16:25)
--- NOTE | 2019-06-24 07:48 | INFECTIOUS DISEASE PROGRESS NO ---
DATE: 06/24/2019 PRESENT ILLNESS: The patient has a methicillin-resistant Staphylococcus aureus bacteremia and a methicillin-resistant Staphylococcus aureus septic arthritis of the ankle. There also was present an abscess in the ankle. Finally, there is osteomyelitis present in the ankle as noted in surgery where Dr. Bruno noted that there was pus that went down to the bone and he debrided the bone. MEDICATIONS: The patient is on IV vancomycin. PHYSICAL EXAMINATION: Vital Signs: Temperature is 97.6 degrees, pulse 79, respirations 19, blood pressure 130/91. General: This is an ill-appearing, young female. Head, Eyes, Ears, Nose, and Throat: No drainage is noted from the nose or ears. I did not see any white patches in her mouth. Neck: There did not seem to be any pain when the patient moved her neck. Lungs: Clear to auscultation. Cardiovascular: Regular heart rate. Abdomen: Soft and nontender. Extremities: The patient's right leg is in a splint with a large dressing. The dressing is intact. Neurologic: The patient is awake. She can move her extremities. There is no tremor. LAB AND X-RAY: The patient's CBC for today showed a white count of 14,210, hemoglobin 7.9, and platelet count is 437,000. Creatinine is 0.4. GFR is greater than 60. test was negative. The urine chlamydia and gonorrhea by PCR were not detected. ASSESSMENT AND PLAN: The patient has a methicillin-resistant Staphylococcus aureus bacteremia, septic arthritis, ankle abscess, and ankle osteomyelitis. The plan is to continue the patient's vancomycin for a total of [address] Bruno, yesterday, completed a full drainage and debridement of the patient's methicillin-resistant septic arthritis with osteomyelitis and abscess. The patient should not have a permanent intravenous catheter such as a peripherally inserted central catheter or a Srivastava catheter inserted until the patient's repeat blood cultures are sterile. The blood cultures have been drawn today. COMORBIDITIES: The patient is an IV drug addict. cc: Rome Frederick MD
--- NOTE | 2019-06-24 08:40 | PROGRESS NOTE ---
DATE: 06/24/2019 INTERVAL HISTORY: No acute events overnight. Yesterday, MRI had suggested acute osteomyelitis affecting right lower fibula and so she was taken to surgery by the orthopedic team. She was found to have acute osteomyelitis, ankle joint septic arthritis, as well as abscess which was debrided. Overnight, she did not have any other acute events. Her tachycardia had resolved. Currently, patient is complaining of excruciating pain. VITALS: Temperature 96.6 degrees, pulse 79, respiratory rate 19, blood pressure 130/90. She is saturating 98% on room air. PHYSICAL EXAMINATION: General: She is crying and wincing because of pain. I counseled her about balancing pain medications versus respiratory depression. Oral cavity is dry. Lungs: Air entry bilaterally equal. No wheeze, rhonchi, crackles except left inframammary region. Cardiovascular: S1, S2 normal. No murmur, rub, or gallop. Abdomen: Soft, nontender. Her right lower extremity is in a heavy bandage. Input and output suggest positive 6 L at least. LABS: Suggestive of improving leukocytosis, normocytic anemia, thrombocytosis. She also has normal kidney function. MICROBIOLOGY: Blood cultures on June 22 are growing presumptive MRSA. IMAGING: Echocardiogram had suggested normal left ventricular ejection fraction of 60 to 65 percent with normal wall motion. No mitral valve prolapse and no identifiable valvular vegetations. ASSESSMENT AND PLAN: 1. Methicillin-resistant Staphylococcus aureus sepsis from right ankle septic arthritis, right lower fibular acute osteomyelitis, and also leading to left lower lobe hematogenously spread methicillin-resistant Staphylococcus aureus pneumonia and acute hypoxic respiratory failure with IV drug use. Continue intravenous vancomycin and close monitoring of kidney function as per infectious disease recommendation for a total of 6 weeks duration. Her echocardiogram did not detect any valvular vegetations. Ultrasound deep venous thrombosis did not detect any lower extremity deep venous thrombosis. 2. Anemia likely due to hemodilution. No overt signs of bleeding. She has received at least 12 L fluids since admission. I will monitor her cbc. 2. Right foot pain. Continue intravenous hydromorphone, [place], and Ketoralac as needed. My plan is to slowly titrate her regimen down tomorrow to oral. 3. Acute hypoxic respiratory failure due to left lower lobe methicillin- resistant Staphylococcus aureus pneumonia has now resolved. Continue intravenous antibiotics. 4. Disposition. I will continue to monitor patient inside the intensive care unit for today and plan is to transfer her to routine medical floor. Plan of care discussed with the nursing team. All of their questions have been answered. cc: Von Hernandez MD MTDD
--- NOTE | 2019-06-24 08:47 | ORTHOPAEDICS PROGRESS NOTE ---
DATE: 06/24/2019 SUBJECTIVE: Ms. Malone is in a lot of pain this morning. She says the pain medicine isn't really working great. She just feels like the foot is burning. OBJECTIVE: Right lower extremity exam: Splint is clean, dry, and intact. She has good capillary refill to all the toes. She has good dorsiflexion, plantar flexion of the toes as well. ASSESSMENT: Status post irrigation, debridement ankle for abscess and infection. PLAN: I had a long talk with Ms. Malone really about the foot. We discussed long-term what this may look like. She may end up having ankle instability. She could ended getting a arthritic changes. She could also have problems healing her fibula I went over all that with her. We also then talked about her lifestyle decisions. I discussed with her about her IV drug abuse and really encouraged her to leave that lifestyle behind and try to encourage her to stay clean. We will continue to follow the ankle. We will look at it tomorrow, take the dressing down, and see how she is responding to the surgery and to the IV antibiotics. cc: Torito Bruno MD
[2019-06-24] MEDS: VANCOMYCIN 2,000 MG in NS 500 ML IV SCH ×2 (09:52→23:00)
--- NOTE | 2019-06-24 14:05 | GENERAL SURGERY PROGRESS NOTE ---
DATE: 06/24/2019 HISTORY OF PRESENT ILLNESS: This is a 18-year-old female, admitted with a foot and ankle infection and history of IV drug abuse. She is bacteremic with gram-positive cocci. I was asked to place a central line. MEDICAL HISTORY: History of IV drug use, infection of the right ankle status post incision and debridement by Dr. Bruno. SURGICAL HISTORY: As above. FAMILY HISTORY: Reviewed and noncontributory. SOCIAL HISTORY: Smokes. Denies ongoing alcohol or substance abuse; urine drug screen is positive for tricyclics and THC. History of heroin. REVIEW OF SYSTEMS: Ten point review of systems negative other than mentioned in HPI. OBJECTIVE: General: She is afebrile, pulse 88, blood pressure 129/91, O2 saturations 98%. General: She is alert. Cardiovascular: Normal rate. Pulmonary: No increased work. Abdomen: Soft. Integument: Warm, dry. Extremities: Her right foot is elevated. It has a cast in place. DIAGNOSTIC STUDIES: White count 14, hematocrit 43. Creatinine 0.4. ASSESSMENT AND PLAN: This is a 18-year-old female with poor peripheral access. She has a foot IV and is receiving IV antibiotics. Dr. Frederick has advised against a PICC line placed in this juncture, given her recent bacteremia and repeat cultures that are pending. We talked to her about a central line. She has refused this without a general anesthetic. She has not been n.p.o. today. As such, we will continue with the foot IV. I did discuss the possibility that this could go bad, which may affect her ability to get her necessary medications. She understands. Otherwise, I would advise PICC line placement with negative blood cultures. Her mother is here with her. I discussed this plan. If the IV were to go bad, we consider a central line at a later date, especially if she were to have ongoing bacteremia. cc: Carrie Goldsmith MD [facility]
[2019-06-24] MEDS: LOVENOX SUBQ SCH (20:04)
[2019-06-24] MEDS: SEROQUEL PO PRN (21:36)
[2019-06-25] MEDS: DILAUDID IV PRN ×7 (00:29→22:30)
[2019-06-25] MEDS: TORADOL IV PRN (03:02)
[2019-06-25] MEDS: NS 1,000 ML IV SCH (04:21)
[2019-06-25] MEDS: PERCOCET-5 PO PRN (04:25)
[2019-06-25] MEDS: XANAX PO PRN ×3 (04:26→21:14)
[2019-06-25] MEDS: PRILOSEC PO SCH (06:01)
--- NOTE | 2019-06-25 07:34 | INFECTIOUS DISEASE PROGRESS NO ---
DATE: 06/25/2019 PRESENT ILLNESS: The patient has methicillin-resistant Staphylococcus aureus bacteremia and septic arthritis of the ankle, and osteomyelitis of the ankle. MEDICATIONS: The patient is receiving IV vancomycin. PHYSICAL EXAMINATION: Vital Signs: Temperature is 98 degrees, pulse 68, respirations 21, blood pressure 130/87. General: This is a somewhat ill-appearing young female, she is in no acute distress. Head, eyes, ears, nose, and throat: She can hear my spoken words and see near objects. There is no drainage from the nose or ears. Neck: No meningismus. Lungs: Clear to auscultation. Cardiovascular: Heart rate is regular. I did not hear a murmur. Abdomen: Soft and nontender. Extremities: The patient's right leg remains in a splint with a large dressing around it, the dressing is intact. Neurologic: Today the patient is more alert. She can move her extremities. There is no tremor. LAB AND X-RAY: Repeat blood cultures drawn yesterday are growing a gram- positive coccus, which most likely will be methicillin-resistant Staph aureus. Echocardiogram did not show any vegetations. The patient's CBC shows a white count of 14,210, hemoglobin 7.9, and platelet count 437,000. Creatinine is 0.4, GFR is greater than 60. ASSESSMENT AND PLAN: Patient has methicillin-resistant Staphylococcus aureus bacteremia, septic arthritis, and ankle osteomyelitis. The plan is to treat the patient for a total of 8 weeks, because she does have osteomyelitis present and the most recent recommendations for a methicillin- resistant Staphylococcus aureus osteomyelitis is to treat for 8 weeks instead of 6 weeks. Day #1 of treatment with the patient's antibiotics will be the first day that the repeat blood cultures are negative. The repeat blood cultures now are still showing gram-positive cocci, which most likely will be methicillin-resistant Staph aureus. I am going to go ahead and add rifampin and hope that the combination of vancomycin and rifampin will be able to sterilize the blood and clear the patient's ankle infection. I have also ordered a hepatitis profile and HIV antibodies because the patient is an IV drug abuser and she could have those infections. I have ordered repeat blood cultures for 06/27/19. COMORBIDITIES: The patient is an IV drug addict. cc: MD OSIRIS Fortune
--- NOTE | 2019-06-25 07:57 | ORTHOPAEDICS PROGRESS NOTE ---
DATE: 06/25/2019 SUBJECTIVE: Ms. Malone is lying in bed, complaining of pain this morning. OBJECTIVE: Right lower extremity exam: Took the splint down this morning and looked at her ankle. She had a little bit of a blister that I de-roofed right by the incision. Otherwise I did not see a lot of swelling. I did not see really any erythema on that lateral side or the medial side. She is able to move the toes well and then we redressed it and put the splint back on. ASSESSMENT: Right ankle infection status post irrigation and debridement. PLAN: We will continue to follow Ms. Malone. She is nonweightbearing on the right lower extremity right now. She is going to continue with IV antibiotics. We will await all of her cultures from the ankle to see if anything else needs to be tailored. Dr. Frederick and his teams are on board and they were doing the antibiotic recommendations. I am okay with her being moved out of ICU from an orthopedic standpoint. cc: Torito Bruno MD
[2019-06-25] MEDS: RIFAMPIN PO SCH (08:07)
[2019-06-25] MEDS: MOTRIN PO SCH ×2 (08:19→16:03)
[2019-06-25] MEDS: OXY IR PO SCH ×4 (08:19→20:10)
[2019-06-25] MEDS: TYLENOL PO SCH ×3 (08:20→23:59)
[2019-06-25] MEDS ORDERED: RIFAMPIN PO SCH (09:00)
[2019-06-25] MEDS: VANCOMYCIN 2,000 MG in NS 500 ML IV SCH ×2 (10:05→22:30)
--- NOTE | 2019-06-25 11:18 | PROGRESS NOTE ---
DATE: 06/25/2019 INTERVAL HISTORY: She kept on complaining of right foot pain. Yesterday, she had refused to get the central line. She states IV pain medication does not work and she wants me to increase the dose of it from 1 mg to 2 mg. I had a long discussion with her about balancing between the respiratory depression and IV pain medication. I also had a discussion about slowly transitioning her in fact to oral pain medication. Currently, temperature of 97.1, pulse of 75, respiratory rate 22, blood pressure 140/100, saturating 98% on room air. PHYSICAL EXAMINATION: General: She was sleeping when I examined her and then she starts crying during my encounter. HEENT: Oral cavity is dry. Lungs: Air entry decreased in the left inframammary region with inspiratory crackles, otherwise no wheeze or rhonchi. Cardiovascular: S1, S2 normal. No murmur, rub, or gallop. Abdomen: Soft, nontender. Extremities: Right lower extremity is in heavy cast and bandage. LABORATORY: No CBC or BMP today. MICROBIOLOGY: Blood cultures on 06/24 is still growing gram-positive cocci. ASSESSMENT AND PLAN: 1. Methicillin-resistant Staphylococcus aureus sepsis from right ankle septic arthritis, right lower fibular acute osteomyelitis and left lower lobe methicillin-resistant Staphylococcus aureus pneumonia leading to acute hypoxic respiratory failure associated with intravenous drug use. Continue intravenous vancomycin and oral rifampin as per Infectious Disease recommendation for total of 6-8 weeks duration. Echocardiogram did not have any valvular vegetation. Ultrasound did not detect any deep venous thrombosis. Follow up with chest x-ray tomorrow. 2. Right lower extremity pain in the setting of osteomyelitis and septic arthritis as well as right ankle irrigation and debridement on 06/23. Change pain medication regimen to include scheduled doses of acetaminophen, oxycodone, ibuprofen, and as needed hydromorphone intravenously with plan of transitioning her over the next 48 hours. Continue enoxaparin for DVT prophylaxis, omeprazole for stress ulcer prophylaxis. 3. Anxiety and agitation. Continue quetiapine and alprazolam as needed. DISPOSITION: I will transfer the patient to routine medical floor. Social service consult has been placed for L-TAC placement considering need for about 6-8 weeks of antibiotic IV. Considering patient's history of intravenous drug use, getting a PICC line and discharge home may not be safe for her. Plan of care discussed with the nursing team and patient. All questions have been answered. cc: Von Hernandez MD MTDNandini
[2019-06-25] MEDS: LOVENOX SUBQ SCH (20:11)
[2019-06-25] MEDS: SEROQUEL PO PRN (21:14)
[2019-06-26] MEDS: DILAUDID IV PRN ×6 (02:35→22:31)
[2019-06-26] MEDS: OXY IR PO SCH ×6 (04:31→20:08)
[2019-06-26] MEDS: XANAX PO PRN ×2 (05:26→16:20)
--- NOTE | 2019-06-26 06:26 | Diag Imaging Result Doc PS360 ---
EXAM: CHEST-PORTABLE HISTORY: Follow up Left lung pneumonia TECHNIQUE: Portable chest single view COMPARISON: 06/20/2019 FINDINGS: Interval worsening of the left-sided pneumonia in the lingular segment of the upper lobe and now also in the left lower lobe. There are also small infiltrates in the right lower lobe. IMPRESSION: Worsening pneumonia Electronically signed by Ciro Medina 06/26/2019 6:23 AM
[2019-06-26] MEDS: PRILOSEC PO SCH (06:34)
[2019-06-26] MEDS: TYLENOL PO SCH ×2 (07:44→16:16)
[2019-06-26] MEDS: MOTRIN PO SCH ×3 (07:46→16:16)
--- NOTE | 2019-06-26 09:59 | PROGRESS NOTE ---
DATE: 06/26/2019 INTERVAL HISTORY: She did have episode of fever of 100.7 degrees early today morning. Yesterday because of her persistent positive blood culture she was started on rifampin in addition to vancomycin. Unfortunately, vancomycin random levels were never more than 15. SUBJECTIVE: She was sleeping during my encounter when she woke up she suddenly started complaining of pain and started crying. CURRENT VITAL SIGNS: Temperature 100.7 degrees, pulse 101, respiratory rate 18, blood pressure 150/90. She is saturating 97% on room air. PHYSICAL EXAMINATION: General: She is crying because of pain. Oral cavity is dry. She has decreased air entry on left infrascapular region with inspiratory crackles. S1, S2 normal. No murmur, rub, or gallop. Abdomen: Soft, nontender. Right lower extremity is in heavy cast and bandage and she is complaining of pain over there. LABS: No CBC or BMP today. Microbiology, blood cultures are showing gram-positive cocci. ASSESSMENT AND PLAN: 1. Methicillin resistant Staphylococcus aureus sepsis from right septic arthritis, right lower fibular acute osteomyelitis due to intravenous drug use. Continue intravenous vancomycin and oral rifampin. Follow up repeat blood culture results. Total duration of antibiotic would be 6 to 8 weeks. Echocardiogram did not have valvular vegetation. 2. Left lower lobe hematogenously spread methicillin resistant Staphylococcus aureus pneumonia. Considering her recurrence of fever, follow up with repeat sputum culture, continue intravenous vancomycin. Her acute hypoxic respiratory failure has resolved. 3. Right lower extremity pain. Continue current regimen of acetaminophen, ibuprofen, intravenous hydromorphone and oxycodone. She does have high tolerance for opioids, though. 4. Continue enoxaparin for DVT prophylaxis, omeprazole for stress ulcer prophylaxis. Continue quetiapine, alprazolam as needed for anxiety and agitation. DISPOSITION: Continue to monitor the patient in telemetry unit. Plan of care discussed with the patient and her mother at bedside. All of their questions have been answered. cc: Von Hernandez MD
[2019-06-26] MEDS: VANCOMYCIN 2,000 MG in NS 500 ML IV SCH ×2 (10:26→21:37)
[2019-06-26] MEDS: RIFAMPIN PO SCH (10:27)
[2019-06-26 19:15] LABS: BASO# 0.04 X1000 (0.0-0.2); BASO% 0.3 % (0.0-0.8); EOS# 0.13 X1000 (0.0-0.7); EOS% 0.8 % (0.0-10.0); HEMATOCRIT 24.8 % (37.0-47.0); HEMOGLOBIN 8.1 g/dL (12.0-16.0); IMM GRAN# 0.25 X1000 (0.0-0.04); IMM GRAN% 1.6 % (0.0-0.5); LYMPH# 2.65 X1000 (1.2-3.4); LYMPH% 16.6 % (20.5-51.1); MCH 27.2 PG (27-31); MCHC 32.7 g/dL (33-37); MCV 83.2 FL (81-99); MONO# 1.12 X1000 (0.11-0.59); MPV 8.4 FL (7.4-10.4); NEUT# 11.74 X1000 (1.4-6.5); NEUT% 73.7 % (42.2-75.2); PLT 793 X1000 (130-400); RBC 2.98 XMIL (4.2-5.4); RDW 14.5 % (11.5-14.5); WBC 15.93 X1000 (4.8-10.8)
[2019-06-26 19:33] LABS: LYMPHS 15 % (21-51); MONO 3 % (1-9); SEGS 82 % (42-75)
[2019-06-26 19:36] LABS: ANISOCYTOSIS OCCASIONAL; HYPOCHROM 2+; POLYCHROM OCCASIONAL
[2019-06-26 19:37] LABS: LARGE PLATELETS OCCASIONAL
[2019-06-26 19:42] LABS: AGAP 9; BUN 5 mg/dL (8-22); CALCIUM 8.3 mg/dL (8.8-10.2); CHLORIDE 102 mmol/L (98-107); COSMO 270; CREATININE 0.5 mg/dL (0.5-0.9); ESTIMATED GFR > 60; GLUCOSE 105 mg/dL (70-104); MAGNESIUM 1.7 mg/dL (1.5-2.7); POTASSIUM 3.7 mmol/L (3.5-5.1); SODIUM 136 mmol/L (136-145); TCO2 25 mmol/L (25-35)
[2019-06-26] MEDS: SEROQUEL PO PRN (21:36)
[2019-06-26] MEDS: LOVENOX SUBQ SCH (21:36)
[2019-06-27] MEDS: TYLENOL PO SCH ×3 (00:26→16:39)
[2019-06-27] MEDS: OXY IR PO SCH ×6 (00:26→20:36)
[2019-06-27] MEDS: MOTRIN PO SCH (00:26)
[2019-06-27] MEDS: XANAX PO PRN ×2 (00:33→08:55)
[2019-06-27] MEDS: DILAUDID IV PRN ×6 (03:28→23:05)
[2019-06-27] MEDS: PRILOSEC PO SCH ×2 (06:23→06:24)
[2019-06-27] MEDS: RIFAMPIN PO SCH (08:28)
--- NOTE | 2019-06-27 09:25 | ORTHOPAEDICS PROGRESS NOTE ---
DATE: 06/27/2019 SUBJECTIVE: Patient is a pleasant, 18-year-old female who is 4 days status post irrigation and debridement of right ankle. She is currently resting comfortably. PHYSICAL EXAMINATION: The patient's right lower extremity splint is intact. She has good capillary refill distally. Able to flex and extend all of her toes. LABORATORY DATA: Her cultures did reveal methicillin-resistant Staphylococcus aureus bacteremia and septic arthritis. IMPRESSION: Postoperative day #4 status post irrigation and debridement of right ankle. PLAN: At this point, the patient will continue with IV antibiotics per Dr. Frederick. She will be maintained in a splint. She will be nonweightbearing on the right lower extremity. cc: Gamal Fernando MD
[2019-06-27] MEDS ORDERED: VALIUM PO ONE (09:47)
--- NOTE | 2019-06-27 10:07 | GENERAL SURGERY PROGRESS NOTE ---
DATE: 06/27/2019 SUBJECTIVE: The patient has no new complaints overnight. OBJECTIVE: Vital Signs: She is afebrile. Vital signs are stable. General: She is awake and alert. No acute distress. Respiratory: No increased work of breathing. MICROBIOLOGY: Her blood cultures on 06/24/2019 are 1/2 positive for MRSA. ASSESSMENT AND PLAN: A 18-year-old female with septic arthritis and right ankle osteomyelitis, intravenous drug abuse, and methicillin-resistant staphylococcus aureus bacteremia. We will place a central venous line today for ongoing intravenous access and need for antibiotics. When her blood cultures have cleared, the plan is to remove the central line, and place a peripherally- inserted central catheter line for outpatient antibiotics. I went over the risks and benefits, including bleeding, infection, and pneumothorax. She and her mom understand and agree to proceed. cc: Jonnie Paiz MD
--- NOTE | 2019-06-27 10:53 | INFECTIOUS DISEASE PROGRESS NO ---
DATE: 06/27/2019 PRESENT ILLNESS: The patient has methicillin-resistant Staph aureus bacteremia and septic arthritis and osteomyelitis of the right ankle. MEDICATIONS: The patient is on IV vancomycin and p.o. rifampin. PHYSICAL EXAMINATION: Vital Signs: Temperature is 98.5 degrees, pulse 92, respirations 18, blood pressure 141/93. General: The patient does not look to be ill. She is in no acute distress. HEENT: She can hear my spoken words and see near objects. She does not have any white coating of her tongue. Neck: No pain with movement of her neck. Lungs: Clear to auscultation. Cardiovascular: Regular heart rate. No murmur was present. Abdomen: Soft and nontender. Extremities: The patient's right leg is in a large splint and dressing. The dressing is intact. Neurologic: The patient is alert. She can move her extremities. She carries on a coherent conversation. She does not have a tremor. LABORATORY DATA: CBC shows a white count of 15,930, hemoglobin 8.1, and platelet count 793,000. Creatinine is 0.5. GFR is greater than 60. Vancomycin level is 13.5. ASSESSMENT AND PLAN: The patient has a methicillin-resistant Staph aureus bacteremia, septic arthritis, and osteomyelitis of the ankle. Unfortunately, the patient's vancomycin levels are low, and the patient's blood cultures have remained positive. The plan now is to change the patient's vancomycin dose to 1.5 gram intravenously every 8 hours. Also, the patient is going to get an internal jugular venous catheter, and I have written an order for all lab to be drawn from that catheter because it is impossible to draw blood because she has no peripheral intravenous access. I had ordered a hepatitis profile and human immunodeficiency virus antibodies because the patient is an intravenous drug abuser, and hopefully with the new catheter that she is going to get, those two orders will be able to be done. The patient also is going to have repeat blood cultures drawn today. COMORBIDITIES: The patient is an IV drug addict. cc: Rome Frederick MD
--- NOTE | 2019-06-27 11:16 | PROGRESS NOTE ---
DATE: 06/27/2019 INTERVAL HISTORY: No acute events overnight. She has not had any fever spikes. Her pain is slightly better controlled. Her mother is at bedside. She appears comfortable. Her sputum culture has not shown any growth. I had discussion with infectious disease team about the low vancomycin level as well as persistent bacteremia. Repeat blood cultures have been drawn. VITALS: Currently, temperature 98.5 degrees, pulse 92, respiratory rate 18, blood pressure 140/90. She is saturating 100% on room air. PHYSICAL EXAMINATION: General: She does not appear in any acute distress. Oral cavity is moist. Lungs: Air entry decreased in the left inframammary region with inspiratory crackles. No wheeze or rhonchi. She also has right inframammary crackles, with adequate air entry. Cardiovascular: S1, S2 normal. Not tachycardic. No murmur, rub, or gallop. Abdomen: Soft, nontender. No lower extremity edema. Her oral cavity is moist. No pallor, cyanosis, clubbing, or icterus. She has left-sided foot peripheral IV line. She is able to wiggle the right lower extremity toe which is in a cast. LABS: No CBC or BMP today. MICROBIOLOGY: Repeat blood culture and sputum culture are pending. IMAGING: No new imaging today. ASSESSMENT AND PLAN: 1. Methicillin-resistant Staphylococcus aureus sepsis from right ankle septic arthritis, right lower fibular acute osteomyelitis due to intravenous drug use. Continue intravenous vancomycin and oral rifampin. The dosing of vancomycin has been changed according to infectious disease and pharmacy recommendations. Follow up repeat blood cultures. Total duration should be 8 weeks. Echocardiogram did not show valvular vegetation. 2. Bilateral lower lobe hematogenesis spread methicillin-resistant Staphylococcus aureus pneumonia. Follow up sputum culture to rule out superinfection with other bacteria. Her acute hypoxic respiratory failure has resolved. 3. Right lower extremity pain. Continue current regimen of acetaminophen, intravenous hydromorphone, and oxycodone and PRN alprazolam. She does have high tolerance of opioids. 4. Continue enoxaparin for deep venous thrombosis prophylaxis, omeprazole for stress ulcer prophylaxis, quetiapine and alprazolam as needed for anxiety and agitation. Follow up EKG to monitor QTc prolongation. 5. Disposition. Continue to monitor patient in telemetry unit because of persistent bacteremia. Plan of care discussed with them. Their questions have been answered. cc: Von Hernandez MD MTDD
--- NOTE | 2019-06-27 12:22 | Diag Imaging Result Doc PS360 ---
CHEST-PORTABLE - 06/27/2019 INDICATION: verify central line placement COMPARISON: 06/26/2019 FINDINGS: There is a right internal jugular central line with the catheter tip at the cavoatrial junction. No pneumothorax or large pleural effusion. Stable rounded opacity at the left lung base. IMPRESSION: Good central line placement. Electronically signed by Refugio Keene 06/27/2019 12:20 PM
[2019-06-27] MEDS: VANCOMYCIN 1.5 GM in NS 250 ML IV SCH ×2 (12:49→20:37)
--- NOTE | 2019-06-27 13:33 | OPERATIVE NOTE ---
PROCEDURE DATE: 06/27/2019 PREOPERATIVE DIAGNOSIS: Methicillin-resistant Staphylococcus aureus bacteremia, history of IV drug abuse, septic arthritis and osteomyelitis of the right ankle. POSTOPERATIVE DIAGNOSIS: Methicillin-resistant Staphylococcus aureus bacteremia, history of IV drug abuse, septic arthritis and osteomyelitis of the right ankle. PROCEDURE: Insertion of central venous catheter with ultrasound guidance. SURGEON: Jonnie Paiz MD. BRIGADIER: HAYDEE Mcmahan. ESTIMATED BLOOD LOSS: Scant. COMPLICATIONS: None apparent. FINDINGS: The right internal jugular vein was visualized with ultrasound. It was found to be compressible, patent and without thrombus. TECHNIQUE: She was placed in Trendelenburg in her hospital bed in the supine position. The right neck was prepped and draped in usual sterile fashion. Ultrasound was used to visualize the right internal jugular vein with findings as noted above. The skin over the vein was anesthetized with 1% lidocaine. The vein was accessed under ultrasound guidance with one stick, drawing back dark, nonpulsatile blood. The wire passed through the needle into the vein easily. The tract was dilated, and a triple-lumen central venous catheter was passed over the wire into the vein via the Seldinger technique. The wire was removed. All ports leon back blood easily and were flushed with saline easily. The port was anchored to the skin with silk suture, and a sterile dressing was applied. There were no apparent complications. cc: Jonnie Paiz MD
[2019-06-27] MEDS ORDERED: OXY IR PO ONE (14:09)
--- NOTE | 2019-06-27 14:42 | EKG Report ---
Test Performed on : 06/27/2019 11:45:00 AM Test Reason : QTc monitoring Blood Pressure : / mmHG Vent. Rate : 100 BPM Atrial Rate : 100 BPM P-R Int : 116 ms QRS Dur : 068 ms QT Int : 352 ms P-R-T Axes : 016 043 037 degrees QTc Int : 454 ms Normal sinus rhythm. Normal ECG When compared with ECG of 20-JUN-2019 17:01, (Unconfirmed) No significant change was found Confirmed by Lorenzo Yung MD ([id number]) on 06/29/2019 12:06:08 PM
[2019-06-27] MEDS: LOVENOX SUBQ SCH (20:36)
[2019-06-27 22:08] LABS: HIV ANTIBODY SCREEN SEE COMMENTS
[2019-06-27] MEDS: SEROQUEL PO PRN (23:04)
[2019-06-28] MEDS: XANAX PO PRN ×3 (01:12→22:15)
[2019-06-28] MEDS: OXY IR PO SCH ×6 (01:12→20:14)
[2019-06-28] MEDS: TYLENOL PO SCH ×3 (01:12→16:53)
[2019-06-28] MEDS: DILAUDID IV PRN ×6 (03:07→23:15)
[2019-06-28] MEDS: VANCOMYCIN 1.5 GM in NS 250 ML IV SCH ×3 (05:10→20:14)
[2019-06-28] MEDS: PRILOSEC PO SCH (06:29)
[2019-06-28 07:20] LABS: BASO# 0.03 X1000 (0.0-0.2); BASO% 0.2 % (0.0-0.8); EOS# 0.24 X1000 (0.0-0.7); EOS% 1.4 % (0.0-10.0); HEMATOCRIT 26.8 % (37.0-47.0); HEMOGLOBIN 8.7 g/dL (12.0-16.0); IMM GRAN# 0.21 X1000 (0.0-0.04); IMM GRAN% 1.2 % (0.0-0.5); LYMPH# 2.35 X1000 (1.2-3.4); MCH 27.1 PG (27-31); MCHC 32.5 g/dL (33-37); MCV 83.5 FL (81-99); MONO# 1.23 X1000 (0.11-0.59); MONO% 7.3 % (1.7-9.3); MPV 8.6 FL (7.4-10.4); NEUT# 12.77 X1000 (1.4-6.5); NEUT% 75.9 % (42.2-75.2); PLT 744 X1000 (130-400); RBC 3.21 XMIL (4.2-5.4); RDW 14.9 % (11.5-14.5); WBC 16.83 X1000 (4.8-10.8)
[2019-06-28 08:05] LABS: AGAP 11; BUN 5 mg/dL (8-22); CALCIUM 9.6 mg/dL (8.8-10.2); CHLORIDE 102 mmol/L (98-107); COSMO 271; CREATININE 0.4 mg/dL (0.5-0.9); ESTIMATED GFR > 60; GLUCOSE 98 mg/dL (70-104); MAGNESIUM 1.9 mg/dL (1.5-2.7); SODIUM 137 mmol/L (136-145); TCO2 24 mmol/L (25-35)
[2019-06-28] MEDS: RIFAMPIN PO SCH (08:24)
--- NOTE | 2019-06-28 10:12 | INFECTIOUS DISEASE PROGRESS NO ---
DATE: 06/28/2019 PRESENT ILLNESS: The patient has a methicillin-resistant Staphylococcus aureus bacteremia, septic ankle arthritis, and osteomyelitis of the ankle. Also, on chest x-ray, there is a left lower lobe opacity which could well be due to methicillin-resistant Staphylococcus aureus which infected the lung hematogenously. MEDICATIONS: The patient is on vancomycin and rifampin. PHYSICAL EXAMINATION: Vital Signs: Temperature is 98.8 degrees, pulse 81, respirations 17, blood pressure is 142/91. General: This is a somewhat ill-appearing young female. She is in no acute distress. Head, Eyes, Ears, Nose, and Throat: She can hear my spoken words and see near objects. She does not have any white patches in her mouth. Neck: No pain with moving the neck. She does have a internal jugular vein catheter in place. Lungs: Clear to auscultation. Cardiovascular: Regular heart rate. I did not hear a murmur. Abdomen: Soft and nontender. Extremities: The patient's right leg is in a large splint and dressing. The dressing is intact. Neurologic: The patient is alert. She can move her extremities. There is no tremor. Integument: No rash noted. DIAGNOSTIC STUDIES: Chest x-ray shows a continued left lower lobe opacity. The patient's CBC shows a white count of 16,830, hemoglobin 8.7, platelet count 744,000. Creatinine is 0.4, GFR is greater than 60. Chest x-ray shows left lower lobe opacity. HIV antibody and the confirmation test both are negative, according to the information I got from the [facility] laboratory that did the tests. Also, I have ordered a hepatitis profile, and the blood bank laboratory technician told me that the patient's hepatitis C is positive and it has been sent off for a PCR. ASSESSMENT AND PLAN: 1. The patient has methicillin-resistant Staphylococcus aureus bacteremia. 2. Septic ankle arthritis. 3. Osteomyelitis of the ankle. 4. Probably left lower lobe pneumonia as well. 5. She also now has hepatitis C, and we are waiting for the PCR to come back to see if she has an active or nonactive disease. The plan now is to continue with vancomycin in a dose now of 1.5 g every 8 hours. Also continue with rifampin. If the patient's blood cultures drawn 2 days earlier are negative, then we will not need any further confirmation, but if they are positive, I would like to repeat the blood cultures again because it was just yesterday that the vancomycin dose was changed to 1.5 g IV every 8 hours. Also, when we get back the information on hepatitis C, if it is an active case, I would like to put in a consult for Gastroenterology to treat the hepatitis. Also, my plan is to get a CT scan of the chest to see what the opacity in the left lower lobe is and hopefully it is something that could be treated with antibiotics. PATIENT'S COMORBIDITY: She is an intravenous drug addict. cc: Rome Frederick MD MTDD
--- NOTE | 2019-06-28 10:47 | Diag Imaging Result Doc PS360 ---
EXAM: CT THORAX W/O CONTRAST 06/28/2019 HISTORY: R/o lung abscess TECHNIQUE: This exam was performed using automated exposure control, adjustment of mA or kV according to patient size, and/or use of iterative reconstruction technique. COMMENT: There are no previous CT examinations available for comparison. There is a right internal jugular catheter with its tip in the right atrium. There are bilateral pleural effusions. These have relatively high CT densities of around 19 Hounsfield units. It is possible that these are either bloody or exudative. There is a pleural-based mass anteriorly on the left measuring 6.7 x 3.9 cm in axial dimension. There is also thickening of the pectoralis muscle on the left. There is a fracture of the anterior distal left fourth rib. There are some subadjacent soft tissue calcifications. There are multiple pleural-based nodules present in both upper lobes including one on the left on image 16 measuring over 9 mm in diameter. There is atelectasis or pneumonia in both lower lobes. There is a pleural-based ill-defined opacity posterior laterally in the left lower lobe on image 65. There are some small nodules just above the right hemidiaphragm in the right lower lobe. There is a small pericardial effusion. There are some prominent aorticopulmonary window nodes one of which measures over 2 cm in long axis. There is a right paratracheal node which measures over 13 mm. There is some residual thymic tissue. IMPRESSION: 1. Multiple pleural-based nodules bilaterally which, given the relatively rapid progression over the previous chest radiographs from 06/20/2019 to the more recent study of 06/27/2019, are probably related to septic emboli. 2. Bilateral lower lobe atelectasis versus pneumonia. 3. Bilateral pleural fluid collections. 4. Large pleural-based opacity anteriorly on the left in the area of the lingula. This may represent a pulmonary infarct or early pulmonary abscess. 5. Fracture of the left anterior fourth rib with probable hematoma in the pectoralis muscle. This may be a result of an unrecognized fall or other trauma. The findings were discussed with Von Hernandez MD at 06/28/2019 10:44 AM. Electronically signed by Ranjeet Olvera 06/28/2019 10:44 AM
--- NOTE | 2019-06-28 11:54 | PROGRESS NOTE ---
DATE: 06/28/2019 INTERVAL HISTORY: She got the CAT scan of the chest. The results of which are pending. When I entered the room, she was vaping. I discussed with her about not using it. She denies any shortness of breath. However, she does have pleuritic chest pain on and off. She denies to be in any respiratory distress though she appears more alert and comfortable today. She denies nausea, vomiting, or abdominal pain. We discussed about persistent MRSA bacteremia, need for CT scan, considering I was suspecting an abscess. We also discussed about pending HIV and hepatitis results. I also discussed the case with her mother. VITALS: Temperature of T-max of 100.2 degrees, pulse of 83, respiratory rate 17, and blood pressure 140/90. PHYSICAL EXAMINATION: General: Does not appear in any acute distress. HEENT: Oral cavity is moist. Lungs: Air entry bilaterally equal. No wheeze, rhonchi, or crackles. Cardiovascular: S1, S2 normal. No murmur, rub, or gallop. Abdomen: Soft, nontender. No lower extremity edema. Extremities: Right lower extremity is in cast. Neurologic: She is alert and oriented x3. ASSESSMENT AND PLAN: 1. MRSA sepsis due to IV drug use leading to right ankle septic arthritis, right lower leg fibular acute osteomyelitis, and hematogenous lysed left lower lobe pneumonia. Continue intravenous vancomycin and oral rifampin. The frequency of vancomycin was increased on 06/27 since her levels of vancomycin were consistently less than 15. I will monitor BMP. She would need a total of 8 weeks of antibiotics. Though transthoracic echocardiogram did not show valvular vegetation, I will consider Cardiology consult tomorrow if the CT scan shows septic emboli for JAMARCUS. 2. Bilateral lower lobe hematogenous spread MRSA pneumonia. Follow up repeat sputum culture, and follow up CT scan to rule out lung abscess. Her acute hypoxic respiratory failure has resolved. 3. Right lower extremity pain. Continue current regimen of acetaminophen intravenous hydromorphone, and oxycodone as well as p.r.n. alprazolam. She has high tolerance for opioids. 4. Intravenous drug use. She was counseled about not using these substances. HIV and hepatitis test are pending. I advised her to follow up the results with upcoming physician. 5. Others: Continue enoxaparin for DVT prophylaxis. Omeprazole for stress ulcer prophylaxis, quetiapine as needed for agitation. 6. Disposition. [facility] is in on board for long-term discharge planning. However, she would need 8 weeks of antibiotics which poses a challenge. I had an extensive discussion with Infectious Disease about her care. If we choose intravenous daptomycin, it may not have good lung penetration, so we want to allow intravenous vancomycin higher frequency dosing for 2 to 3 days, and maybe repeat blood cultures on Friday and Friday along with rifampin to decide about further antibiotics. Plan of care discussed with the patient and her mother. cc: Von Hernandez MD MTDNandini
--- NOTE | 2019-06-28 13:17 | ORTHOPAEDICS PROGRESS NOTE ---
DATE: 06/28/2019 SUBJECTIVE: Ms. Malone is lying in bed this morning. Overall doing okay. She says the ankle is feeling better. OBJECTIVE: Right lower extremity exam: We took her splint down completely. She did have some sort of blistered skin that was that we did remove, and there was actually a good looking skin underneath there. She had a little bit of bloody drainage from the middle of the wound, but it was not a lot. There is no erythema around the wound. She did not tolerate the dressing changes very well. ASSESSMENT: Status post right ankle irrigation and debridement for infection. PLAN: Ms. Malone is still on IV antibiotics. Infectious Disease is managing her dosage and what antibiotic it is. From an orthopedic standpoint, she is nonweightbearing to right lower extremity. We are going to start dressing changes twice a day so that the skin does not macerate. We will order her an orthopedic boot to keep the ankle stable because her lateral ligaments were not all intact because of the infection. We will continue to follow. cc: Torito Bruno MD
--- NOTE | 2019-06-28 14:48 | CARDIOLOGY CONSULTATION ---
DATE: 06/28/2019 REASON FOR CONSULTATION: Cardiology was consulted for transesophageal echocardiogram. HISTORY OF PRESENT ILLNESS: Ms. Shaista Malone is a 18-year-old, lady who presented to [facility] complaining of right foot swelling and redness for 4 days with progressively worsened right ankle, showed soft tissue swelling. Chest x-ray showed lingular pneumonia. Urine drug screen was positive for tricyclics and cannabinoids. She is an IV drug abuser as well. She smokes half a pack of cigarettes a day. Denies alcohol abuse. She has a history of heroine abuse and noted needle child on the right AC. She has also history of psychiatric issues. She underwent a CT scan on 06/18/2019 which revealed multiple pleural-based nodules bilaterally, probably related to septic emboli. She has had bilateral atelectasis versus pneumonia. Large pleural-based opacity in the anterior left lingular area which may represent a pulmonary infarct versus early abscess. She also has fracture of the left anterior 4th rib from a likely hematoma. Her blood cultures grew MRSA. Review of Systems: 14 point review os systems was done. Cardiovascular system no cp suggestive of angina no palpitations. : no dysuria or hematuria CURRENT MEDICATIONS: Include Xanax, Lovenox for DVT prophylaxis. Dilaudid as required. Vancomycin omeprazole, Zofran, oxycodone, Rifampin, vancomycin. ALLERGIES: She is not known to be allergic to any medication. PAST MEDICAL HISTORY: Psychiatric problems and polysubstance abuse. PHYSICAL EXAMINATION: Vital Signs: Blood pressure was 138/87. Cardiovascular: Normal jugular venous pressure. There is no thyromegaly. There is no carotid bruit. Abdomen: Soft. Respiratory: Normal air entry bilaterally. Abdomen: Soft, nontender. There was no guarding or rigidity. Bowel sounds were heard. Central nervous system: Alert and oriented. Extremities: Moving extremities. Right lower extremity in cast. ASSESSMENT AND PLAN: Ms. Shaista Malone is a 18-year-old, lady who has history of polysubstance abuse. She is admitted with right foot pain and has osteomyelitis of the right foot. In addition, CT scan revealed multiple pleural-based nodules bilaterally suggestive of septic emboli. Large pleural-based opacity was noted in the anterior of the left lingula which may represent infarct or an abscess. Given this, Cardiology was consulted for transesophageal echocardiogram to rule out endocarditis; 2D echocardiogram done recently was unremarkable. RECOMMENDATIONS: 1. I have discussed with the patient's family, we will plan for a transesophageal echocardiogram tomorrow. 2. She is methicillin-resistant Staphylococcus aureus positive and is on multiple antibiotics. I have not made any changes. 3. We will also make sure there is no deep venous thrombosis. We will set her up for venous Dopplers of lower extremities as well. cc: Cachorro Goodrich MD [facility]
[2019-06-28] MEDS: LOVENOX SUBQ SCH (21:10)
[2019-06-28] MEDS: SEROQUEL PO PRN (22:15)
[2019-06-29] MEDS: TYLENOL PO SCH ×3 (00:02→17:57)
[2019-06-29] MEDS: OXY IR PO SCH ×6 (00:02→19:46)
[2019-06-29] MEDS: DILAUDID IV PRN ×4 (03:42→16:02)
[2019-06-29] MEDS: VANCOMYCIN 1.5 GM in NS 250 ML IV SCH ×3 (03:42→19:49)
[2019-06-29] MEDS: PRILOSEC PO SCH (06:02)
[2019-06-29] MEDS: XANAX PO PRN ×2 (06:22→21:12)
[2019-06-29 08:00] LABS: AGAP 9; BUN 6 mg/dL (8-22); CALCIUM 9.6 mg/dL (8.8-10.2); CHLORIDE 101 mmol/L (98-107); COSMO 270; CREATININE 0.4 mg/dL (0.5-0.9); ESTIMATED GFR > 60; GLUCOSE 100 mg/dL (70-104); POTASSIUM 4.2 mmol/L (3.5-5.1); SODIUM 136 mmol/L (136-145); TCO2 26 mmol/L (25-35)
[2019-06-29] MEDS: RIFAMPIN PO SCH (08:49)
[2019-06-29 09:38] LABS: INR 1.05; PROTIME 13.8 Seconds (11.0-16.0)
[2019-06-29 09:39] LABS: PTT 41.6 Seconds (22.3-41.8)
[2019-06-29 10:51] LABS: HEPATITIS PROFILE ACUTE SEE COMMENTS
--- NOTE | 2019-06-29 11:00 | INFECTIOUS DISEASE PROGRESS NO ---
DATE: 06/29/2019 PRESENT ILLNESS: The patient has a methicillin-resistant Staph aureus bacteremia, septic ankle arthritis and osteomyelitis of the ankle. She also on x-ray had a left lower lobe opacity which could well be due to hematogenous methicillin-resistant Staph aureus pneumonia. MEDICATIONS: The patient is on vancomycin and rifampin. Her blood cultures on the 27 of June were negative; therefore, this is day 2 of treatment with vancomycin and rifampin with day 1 being the first day that the patient's blood cultures turn negative. PHYSICAL EXAMINATION: Vital Signs: Temperature is 99.4 degrees, pulse 97, respirations 15, blood pressure 135/84. General: This is a somewhat ill-appearing young female. She is in no acute distress. Head, eyes, ears, nose, and throat: She can hear my spoken words and see near objects. She does not have any white coating of her tongue. Neck: On the right side, the patient has an internal jugular venous catheter. The site is not erythematous or purulent. Lungs: Clear to auscultation. Cardiovascular: Regular heart rate without a murmur. Abdomen: Soft and nontender. Extremities: The patient's right leg is in a large splint and dressing. The dressing is intact. Neurologic: Patient is alert. She can move her extremities. There is no tremor. Integument: No rash. LAB AND RADIOLOGY STUDIES: The CBC: The patient's creatinine is 0.4. GFR is greater than 60. The patient's sputum grew normal robe. Blood cultures drawn on June 27 were negative. The patient's hepatitis profile is not yet back, and also the patient's HIV by PCR is not back yet. The HIV antibody test was negative. ASSESSMENT AND PLAN: The patient has methicillin Staphylococcus aureus bacteremia, septic arthritis and osteomyelitis of the ankle, as well as pneumonia. My plan is to continue the vancomycin and rifampin for a total of 8 weeks. This is day 2 of treatment with both agents. Also, we are waiting for the results of the hepatitis profile and the human immunodeficiency virus by polymerase chain reaction results. COMORBIDITIES: She is an intravenous drug addict. cc: Rome Frederick MD
[2019-06-29] MEDS ORDERED: XYLOCAINE 2% VISCOUS ONE (11:28)
[2019-06-29] MEDS ORDERED: ANESTHESIA PB SET 88 IN 5742 ONE (12:38)
[2019-06-29] MEDS ORDERED: CLAVE TWINSITE 32 IN 11959 ONE (12:38)
[2019-06-29] MEDS ORDERED: NS 1,000 ML ONE (12:38)
[2019-06-29] MEDS ORDERED: VERSED ONE (12:42)
[2019-06-29] MEDS ORDERED: DIPRIVAN 1% ONE (12:42)
--- NOTE | 2019-06-29 12:42 | PROGRESS NOTE ---
DATE: 06/29/2019 SUBJECTIVE: This morning, Ms. Malone refers to be doing okay. Still has some drainage from the right ankle. OBJECTIVE: Vital Signs: Blood pressure is 137/86, pulse of 110, respirations are 16, temperature is 99.9 degrees. General Examination: Ms. Malone is a 18-year-old, female. She is in bed. She is not in any cardiopulmonary distress. HEENT: Mucosa is pink and moist. Anicteric. Acyanotic. Neck: Supple. Chest: Good air entry bilaterally. No crepitations. No rhonchi. Cardiovascular: Regular rate and rhythm. No murmurs, no rubs, no gallops. Abdomen: Soft, nontender. Extremities: No pedal edema. The right lower extremity is in sterile dressings. MEDICAL BILLING INSTRUCTOR: The patient is awake, alert, and oriented. Laboratory Data: Chemistry is reviewed and is completely normal. The patient's current antimicrobial medications have all been reviewed. She is still on vancomycin. ASSESSMENT: 1. Sepsis secondary to right ankle septic arthritis with osteomyelitis. 2. Methicillin-resistant Staphylococcus aureus bacteremia coming from the right ankle. 3. Right ankle osteomyelitis with septic arthritis, status post incision and drainage. 4. Hepatitis C antibody positive. We are still waiting on human immunodeficiency virus serology. 5. Bilateral multifocal pneumonia, concerning for septic emboli. The patient has been evaluated by cardiology for a possible transesophageal echocardiogram. 6. Disposition. Pending long-term acute care. cc: Arnaud Bailey MD
[2019-06-29] MEDS ORDERED: XYLOCAINE-MPF 1% 5 ML ONE (12:43)
[2019-06-29] MEDS ORDERED: NS 250 ML ONE (13:30)
--- NOTE | 2019-06-29 14:15 | Transesophageal Echocardiogram ---
DATE: 06/29/2019 PROCEDURE PERFORMED: Transesophageal echocardiogram. DESCRIPTION OF PROCEDURE: The patient was brought to the cardiac catheterization laboratory after informed consent was obtained. Intravenous access was already established. The patient's oropharynx was anesthetized using Cetacaine spray. Propofol was used to anesthetize the patient. A transesophageal echocardiogram probe was easily passed into the esophagus. There were no complications. Ultrasound pictures were obtained. Please see detailed anesthesia records. FINDINGS: 1. Normal left ventricular cavity size. Estimated ejection fraction of 65%. 2. Aortic valve leaflets were trileaflet. 3. Mitral valve was normal. 4. Tricuspid valve was normal. 5. Pulmonic valve was normal. 6. Left atrium was normal. Left atrial appendage was normal. 7. Doppler studies revealed trace mitral regurgitation. 8. There is no aortic stenosis or regurgitation. 9. Ascending aorta was normal. 10. Catheter was noted in the right atrium. Attached to the catheter was a fibrinous mass noted attached to the catheter tip which could be a thrombus. There is no pericardial effusion. CONCLUSIONS: 1. There is no endocarditis or obvious abscess noted. 2. The catheter tip in the right atrium had mobile thrombus noted. 3. Normal left ventricular cavity size. Estimated ejection fraction of 65%. 4. There is no pericardial effusion. cc: MD Nidhi Orr PA
[2019-06-29] MEDS: SEROQUEL PO PRN (21:12)
[2019-06-29] MEDS: LOVENOX SUBQ SCH (21:12)
[2019-06-30] MEDS: TYLENOL PO SCH ×4 (00:25→23:09)
[2019-06-30] MEDS: OXY IR PO SCH ×5 (00:25→20:31)
[2019-06-30] MEDS: VANCOMYCIN 1.5 GM in NS 250 ML IV SCH ×3 (04:53→20:31)
[2019-06-30] MEDS: PRILOSEC PO SCH (05:59)
[2019-06-30 08:22] LABS: INR 1.04; PROTIME 13.7 Seconds (11.0-16.0)
[2019-06-30] MEDS: RIFAMPIN PO SCH (08:52)
[2019-06-30 09:23] LABS: AGAP 12; BUN 7 mg/dL (8-22); CALCIUM 9.7 mg/dL (8.8-10.2); CHLORIDE 101 mmol/L (98-107); COSMO 273; CREATININE 0.5 mg/dL (0.5-0.9); ESTIMATED GFR > 60; GLUCOSE 125 mg/dL (70-104); POTASSIUM 3.9 mmol/L (3.5-5.1); SODIUM 137 mmol/L (136-145); TCO2 24 mmol/L (25-35)
[2019-06-30] MEDS: ZOFRAN IV PRN (09:39)
--- NOTE | 2019-06-30 10:50 | PROGRESS NOTE ---
DATE: 06/30/2019 SUBJECTIVE: This morning, Ms. Malone refers to be hurting a lot in her leg. She was very upset because her Dilaudid was discontinued. Her mother was at the bedside at the time of the encounter, who was very understanding of the rationale behind stopping the Dilaudid because we trying to transition her to oral medication for discharge. Otherwise, she had no new complaints. OBJECTIVE: Vital Signs: Blood pressure is 120/83, pulse of 117, respirations 17, temperature is 99.2 degrees. General: Ms. Malone is a 18-year-old female. She is in bed. She does not seem to be in any distress, except for crying in pain. HEENT: Mucosa was pink and moist. Anicteric. Acyanotic. Neck: Supple. Chest: Good air entry bilaterally. No crepitations or rhonchi. Cardiovascular: Regular rate and rhythm. Abdomen: Soft, nontender. Bowel sounds present. Extremities: No pedal edema. The right lower extremity is still in sterile dressing. TICKETING AGENT: The patient is awake, alert, and oriented. LABORATORY DATA: None for today, except for chemistry, which is completely normal. ASSESSMENT: 1. Sepsis on presentation secondary to right ankle septic arthritis with osteomyelitis. 2. Right ankle septic arthritis with osteomyelitis, status post incision and drainage, with culture showing methicillin-resistant staphylococcus aureus. The patient is on adequate antimicrobial therapy. 3. Methicillin-resistant staphylococcus aureus bacteremia coming from the right ankle. Subsequent blood cultures have now been negative. The patient now has a peripherally-inserted central catheter line. 4. Hepatitis C antibody positive. 5. Bilateral multifocal pneumonia concerning for septic emboli. The patient had a transesophageal echocardiogram, which was negative. 6. History of substance abuse. The patient has a history of heroin use, and her urine toxicology over here also showed tricyclics and cannabinoids. 7. Pain management. Ms. Malone has been on intravenous Dilaudid for the past 9 days. This was discontinued yesterday. She has been started on oxycodone IR, and I have added the ER for long-term management. We will use intravenous form of pain medication only during the dressing time if needed. We will try as much as possible to get a better oral regimen for Ms. Malone in terms of pain management for outpatient use. We are still pending insurance approval for senior care facility for Ms. Malone. cc: Arnaud Bailey MD MTDD
[2019-06-30] MEDS: DILAUDID IV PRN (11:39)
[2019-06-30] MEDS: OXYCONTIN PO SCH ×2 (12:07→23:10)
[2019-06-30 12:54] LABS: HCV BY PCR SEE COMMENTS
--- NOTE | 2019-06-30 15:36 | INFECTIOUS DISEASE PROGRESS NO ---
DATE: 06/30/2019 PRESENT ILLNESS: The patient has a methicillin-resistant Staph aureus bacteremia, septic ankle arthritis, and osteomyelitis of the ankle. She also on her last x-ray had a left lower lobe opacity which could well be due to a hematogenous methicillin-resistant Staph aureus pneumonia. MEDICATIONS: This is day three of treatment with vancomycin and rifampin with day one being the first day that the patient has negative blood cultures. PHYSICAL EXAMINATION: Vital Signs: Temperature is 98.6, pulse 66, respirations 15, blood pressure 129/86. General: This is a somewhat ill appearing young female. She looks better than she did a week ago. Head, eyes, ears, nose, and throat: She can hear my spoken words and see near objects. She does not have any white patches in her mouth. Neck: No pain with movement of the neck. Her internal jugular venous catheter has been removed. Lungs: Clear to auscultation. Cardiovascular: Regular heart rate. Extremities: The patient's right arm has a PICC in it. The site is not erythematous or swollen. The patient's right leg now just has a dressing limited to the ankle. The patient's foot on the right side has wrinkles due to the fact that the patient's swelling is getting much better. There is no erythema. The patient is able to wiggle her toes to request. Her toes are also intact as far as sensory exam. Abdomen: Soft and nontender. Neurologic: Patient is alert. She can move her extremities. There is no tremor. She carries on a coherent conversation. LAB AND X-RAY: There is no new lab or x-rays for today except the patient's vancomycin level, which is 18.5. The patient yesterday had a transesophageal echocardiogram and no vegetations were noted. ASSESSMENT AND PLAN: The patient has, as mentioned above, methicillin-resistant Staphylococcus aureus bacteremia, septic ankle arthritis, and ankle osteomyelitis and possible left lower lobe pneumonia. My plan is to continue vancomycin and rifampin. Tomorrow I am going to order a complete blood count and comprehensive metabolic panel so that we can also test her liver function tests since she is on rifampin. COMORBIDITIES: The patient is an intravenous drug addict. cc: Rome Frederick MD
[2019-06-30] MEDS: XANAX PO PRN (15:52)
[2019-06-30] MEDS: SEROQUEL PO PRN (20:42)
[2019-06-30] MEDS ORDERED: DILAUDID IV ONE (22:46)
[2019-06-30] MEDS: LOVENOX SUBQ SCH (23:13)
[2019-07-01] MEDS: OXY IR PO SCH ×7 (03:36→23:48)
[2019-07-01] MEDS: VANCOMYCIN 1.5 GM in NS 250 ML IV SCH ×3 (03:41→20:38)
[2019-07-01] MEDS: XANAX PO PRN ×2 (03:46→13:49)
[2019-07-01 06:05] LABS: BASO# 0.04 X1000 (0.0-0.2); BASO% 0.4 % (0.0-0.8); EOS# 0.16 X1000 (0.0-0.7); EOS% 1.4 % (0.0-10.0); HEMATOCRIT 24.1 % (37.0-47.0); HEMOGLOBIN 7.6 g/dL (12.0-16.0); IMM GRAN# 0.08 X1000 (0.0-0.04); IMM GRAN% 0.7 % (0.0-0.5); LYMPH# 2.38 X1000 (1.2-3.4); MCHC 31.5 g/dL (33-37); MCV 85.5 FL (81-99); MONO# 0.89 X1000 (0.11-0.59); MONO% 7.8 % (1.7-9.3); MPV 7.9 FL (7.4-10.4); NEUT# 7.81 X1000 (1.4-6.5); NEUT% 68.7 % (42.2-75.2); PLT 775 X1000 (130-400); RBC 2.82 XMIL (4.2-5.4); RDW 14.5 % (11.5-14.5); WBC 11.36 X1000 (4.8-10.8)
[2019-07-01 07:04] LABS: AGAP 12; ALB/GLOB RATIO 0.6; ALBUMIN 2.9 g/dL (3.5-5.0); ALKALINE PHOSPHATASE 100 U/L (32-104); BUN 9 mg/dL (8-22); CALCIUM 8.7 mg/dL (8.8-10.2); CHLORIDE 104 mmol/L (98-107); COSMO 278; CREATININE 0.5 mg/dL (0.5-0.9); ESTIMATED GFR > 60; GLUCOSE 99 mg/dL (70-104); GOT 8 U/L (10-30); GPT 5 U/L (10-36); POTASSIUM 4.1 mmol/L (3.5-5.1); SODIUM 140 mmol/L (136-145); TCO2 24 mmol/L (25-35); TOTAL BILIRUBIN 0.16 mg/dL (0.20-1.00); TOTAL PROTEIN 7.5 g/dL (6.3-8.3)
[2019-07-01 07:05] LABS: EOS 3 % (1-10); LYMPHS 16 % (21-51); MONO 1 % (1-9); SEGS 80 % (42-75)
[2019-07-01] MEDS: ZOFRAN IV PRN (08:02)
[2019-07-01] MEDS: PRILOSEC PO SCH (08:02)
[2019-07-01] MEDS: TYLENOL PO SCH ×3 (08:03→23:45)
[2019-07-01] MEDS: OXYCONTIN PO SCH ×2 (10:15→23:44)
[2019-07-01] MEDS: DILAUDID IV PRN ×2 (11:48→20:57)
[2019-07-01] MEDS: RIFAMPIN PO SCH (13:49)
--- NOTE | 2019-07-01 14:46 | PROGRESS NOTE ---
DATE: 07/01/2019 SUBJECTIVE: Today Ms. Malone refers to be doing okay. Still has some pain in her right ankle but not as severe as yesterday. OBJECTIVE: Vital signs: Blood pressure 127/66, pulse of 85, respiration is 16, temperature is 98.2 degrees. General: Ms. Malone is a 18-year-old female. She is in bed, no distress. HEENT: Mucosa is pink and moist. Anicteric. Acyanotic. Neck: Supple. Chest: Clear to auscultation. No crepitations. No rhonchi. Cardiovascular: Regular rate and rhythm. Abdomen: Soft, nontender. Bowel sounds present. Extremities: No pedal edema. The right lower extremity has a sterile dressing over the ankle. There is mild soiling on the lateral aspect. ASSOCIATE PROFESSOR OF AUTOMATION: Patient is awake, alert, and oriented. LABORATORY DATA: WBC is down to 13.38, hemoglobin is 7.6, platelet count of 775,000. Chemistry is also reviewed, unremarkable. ASSESSMENT: 1. Sepsis on presentation secondary to right ankle septic arthritis with osteomyelitis. Culture is positive for MRSA and the patient had an I D done. 2. Methicillin-resistant Staphylococcus aureus bacteremia, presumably coming from the right ankle. 3. Multifocal pneumonia concerning for septic emboli. A JAMARCUS was negative for any endocarditis. We think this is hematogenous seeding from the ankle infection. 4. History of substance abuse. 5. Pain management. The patient seems to be now stable on the current regimen. We will continue to titrate. 6. Disposition. We are still pending a home health agency that will be willing to follow Ms. Malone. For now, all the institutions have declined to accept her for further management on an outpatient basis. cc: Arnaud Bailey MD
--- NOTE | 2019-07-01 18:12 | ORTHOPAEDICS PROGRESS NOTE ---
DATE: 07/01/2019 SUBJECTIVE DATA: Ms. Malone was lying comfortably in bed. She is not complaining of any complaint currently. She states it does hurt after they do dressing changes. OBJECTIVE DATA: Right lower extremity exam: Both medial and lateral incisions look good; there is no erythema or drainage. She has a lot of new skin on that lateral side under that blistering. Overall things are looking much better. She has good sensation to the foot and 2+ pedal pulse. ASSESSMENT: Status post right ankle irrigation and debridement for infection. PLAN: I think the wound has made a lot of progress. We are going to continue to just do dry dressing changes. She is still having some drainage on the dressing, but it looks serosanguineous. She is staying in the orthopedic boot and remaining nonweightbearing. Again, we are worried about those lateral ankle ligaments. We are trying to wean her off some of her narcotics. We do want her trying to just use oral at this point. We will continue to follow her while she is in the hospital. Dictated by WOODROW rPo for Torito Bruno MD cc: WOODROW Pro MD
[2019-07-01] MEDS: SEROQUEL PO PRN (20:37)
[2019-07-01] MEDS: LOVENOX SUBQ SCH (20:37)
[2019-07-02] MEDS: OXY IR PO SCH ×5 (04:35→20:51)
[2019-07-02] MEDS: VANCOMYCIN 1.5 GM in NS 250 ML IV SCH ×3 (04:35→20:50)
[2019-07-02] MEDS: PRILOSEC PO SCH (07:58)
[2019-07-02] MEDS: DILAUDID IV PRN (08:00)
[2019-07-02] MEDS: TYLENOL PO SCH ×2 (09:34→17:20)
[2019-07-02] MEDS: RIFAMPIN PO SCH (09:36)
[2019-07-02] MEDS: ZOFRAN IV PRN (09:45)
--- NOTE | 2019-07-02 10:03 | Diag Imaging Result Doc PS360 ---
EXAM: CHEST-PORTABLE 07/02/2019 HISTORY: pneumonia TECHNIQUE: AP portable upright at 0951 COMMENT: There is a PICC line on the right with its tip just above the right atrium. The opacity present previously over the left hemidiaphragm medially has improved. The right lung is clearer in appearance and better expanded. The opacity present over the anterior left mid chest which has been demonstrated on previous radiographs and CT is slightly better defined but not significantly changed in size. IMPRESSION: Pleural-based opacity in the left upper lobe, possibly representing a pulmonary infarct and/or pneumonia. Improvement in atelectasis versus pneumonia in both lower lobes. Electronically signed by Ranjeet Olvera 07/02/2019 10:01 AM
[2019-07-02] MEDS ORDERED: SEPTRA DS PO SCH (10:15)
[2019-07-02] MEDS ORDERED: CUBICIN 400 MG in NS 100 ML IV SCH (11:00)
--- NOTE | 2019-07-02 11:00 | Diag Imaging Result Doc PS360 ---
EXAM: CT THORAX W/O CONTRAST 07/02/2019 HISTORY: pneumonia TECHNIQUE: This exam was performed using automated exposure control, adjustment of mA or kV according to patient size, and/or use of iterative reconstruction technique. COMMENT: The current study is compared with the previous examination of 06/28/2019. The nodular opacities which were demonstrated on the previous study have largely become cavitary on the current examination which is consistent with the diagnosis of septic emboli. Some of the lesions are larger than they were for example the pleural-based opacity on image 33 which previously was less than 3 mm in diameter currently measures almost 6 mm. This is also consistent with septic emboli. The pleural-based opacity in the lower portion of the left upper lobe anteriorly which was present at the time the previous examination has decreased slightly in size now measuring 6.7 cm transversely compared to 7.4 cm previously. It is also less dense having an internal CT density of less than 22 Hounsfield units currently compared to 32 Hounsfield units on the previous study. This may indicate an abscess which has undergone further liquefaction. There is improvement in the atelectasis seen previously in the lower lobes posteriorly. The pleural fluid collections which were present bilaterally on the previous study have resolved. There is a small pericardial effusion which was also present previously. There has been some improvement in the aorticopulmonary window adenopathy present on the previous study. The regional skeleton is stable in appearance. IMPRESSION: Septic emboli, many of which are now cavitary in appearance. Improving left upper lobe abscess. Improved mediastinal adenopathy and pleural effusions. Improved bibasilar atelectasis. Electronically signed by Ranjeet Olvera 07/02/2019 10:58 AM
[2019-07-02] MEDS ORDERED: VANCOMYCIN IV PER PHARMACY MISC SCH (12:00)
[2019-07-02] MEDS: OXYCONTIN PO SCH (12:29)
--- NOTE | 2019-07-02 12:46 | INFECTIOUS DISEASE PROGRESS NO ---
DATE: 07/02/2019 ADDENDUM: Unfortunately, after seeing the results of the CT scan, which shows septic emboli, some of which are cavitary, we will need to continue the vancomycin and rifampin as previously ordered. We will stop the daptomycin and Septra and continue vancomycin and rifampin and keep her in the hospital at least over the weekend. We have spoken with Dr. Bailey about this and he agrees with the plan, as outlined by Dr. Frederick. Dictated by WOODROW Nielsen for Rome Frederick MD cc: Rome Frederick MD [facility]
--- NOTE | 2019-07-02 13:22 | INFECTIOUS DISEASE PROGRESS NO ---
DATE: 07/02/2019 PRESENT ILLNESS: Ms. Malone is being treated for methicillin-resistant Staphylococcus aureus bacteremia and osteomyelitis with septic ankle arthritis to the right ankle. There is also a left lower lobe opacity, which may be a hematogenous MRSA pneumonia. MEDICATIONS: Based on her sterile blood cultures, today is day 5 of treatment with IV vancomycin and Rifampin 600 mg p.o. daily. PHYSICAL EXAMINATION: Vital signs: Temperature is 98.3, pulse rate 106, respiratory rate 18, blood pressure 117/66, O2 saturation is 100% on room air. General: This is a fairly healthy- appearing young female. She is lying in the bed currently in no acute distress. HEENT: Atraumatic, normocephalic. Oral mucous membranes are pink and moist. Conjunctivae are pale. Neck: Supple. Trachea is midline. Cardiovascular: Heart rate is regular and fast. Respiratory: Lung sounds are clear to auscultation in the upper and middle lobes, diminished in the bases. No work of breathing is noted. Integumentary: There is a dressing in place to her right ankle that is dry and intact as well as a PICC line to the right arm, that site is without edema, erythema, or drainage. The right lower extremity has no erythema and minimal edema noted to the toes of her right foot. Abdomen: Soft, flat, and nontender. Bowel sounds are active. Neurologic: She is awake, alert, oriented, and moving all her extremities in the bed without difficulty. LABORATORY AND X-RAY: HIV RNA by PCR is undetectable, so we can rule out that diagnosis. Hepatitis panel positive for hepatitis C antibody and hepatitis C RNA is 89 IU/mL.. We got a chest x-ray this morning, which Dr. Frederick has already looked at, which continues to show a left-sided opacity. ASSESSMENT AND PLAN: After speaking with Dr. Bailey, the plan is for her to be discharged today. Unfortunately, the [facility] will not accept her. We would like to go ahead and send her home on daptomycin once a day as an outpatient so that a lock can be put on her PICC line after each infusion, due to her history of IV drug abuse. The vancomycin and Rifampin have been discontinued and we have started her - 1 every 12 hours with a dose now for residual pneumonia, and 400 mg of IV daptomycin once a day to be started today and then be given daily as an outpatient. She has been instructed regarding the side effects of Bactrim, which are rash, diarrhea, and photosensitivity, as well as the possible side effects of daptomycin, which include muscle aches and pains, rash, and diarrhea. She has been instructed to call our office for any of these issues and to stop the medication and come to the ER for any serious reaction. At this point, she is on day 5 of an 8 week regimen for the methicillin-resistant Staphylococcus aureus bacteremia. We will have her come back to our office in 4 weeks and then again in 8 weeks at which time we can hopefully take out the PICC line. She has a new diagnosis of Hepatitis C, so we have consulted Dr. Cunningham to see her. I have spoken to the patient's mother about the plans for OP infusion, for which she will make arrangements. The patient will also continue to follow up with Dr. Bruno, and at this point I believe she is nonweightbearing on that right foot. Because of the look of the chest x-ray, we would like to rule out the possibility of an abscess, so we have also ordered a CT of the thorax without contrast to be done today before she goes home. We will also get some lab work since there was still a leukocytosis at last check. Orders for OP infusion have been put in the front of the chart. These plans have been discussed and recommended by Dr. Frederick. COMORBIDITIES: for Ms. Malone include cigarette smoking and IV drug use. Dictated by WOODROW Nielsen for Rome Frederikc MD cc: Rome Frederick MD [facility]
--- NOTE | 2019-07-02 14:17 | PROGRESS NOTE ---
DATE: 07/02/2019 SUBJECTIVE: This morning Ms. Malone refers to be doing a lot better. She was more polite and courteous. She did not show any signs of pain. OBJECTIVE: Vital signs: Blood pressure was 115/62, pulse of 95, respirations 16, temperature is 98.5 degrees. General: Ms. Malone is a 18-year-old female. She is in bed in no distress. HEENT: Mucosa is pink and moist. Anicteric. Acyanotic. Neck: Supple. Chest: Clear to auscultation. No crepitations. No rhonchi. Cardiovascular: Regular rate and rhythm. No murmurs, no rubs, no gallops. Gastrointestinal: Soft, nontender. Bowel sounds present. Extremities: Right lower extremity is still in sterile dressing over the ankle. There is minimal swelling. CENTRAL NERVOUS SYSTEM: The patient is awake, alert and oriented. LABORATORY DATA: None for today. The patient's current antimicrobial therapy has been reviewed. A CT scan of the chest was done which continues to show septic emboli many of which are now cavitary in appearance, improving left upper lobe abscess, improvement of mediastinal adenopathy and pleural effusion, improved bibasilar atelectasis. ASSESSMENT: 1. Sepsis on presentation secondary to right ankle septic arthritis, osteomyelitis and multifocal pneumonia. 2. MRSA bacteremia, resolved. 3. Multifocal pneumonia secondary to septic emboli. A JAMARCUS was negative for endocarditis. Follow up CT scan is showing some improvement; however, most of the image has now become cavitary. There was an initial plan of switching the patient to daptomycin; however, upon reviewing the CT scan a decision has been made to continue with just vancomycin. 4. History of substance abuse noted. PLAN: In general Ms. Malone is clinically stable. I think the main challenges now is about her disposition. We are still pending final recommendations from the LTAC if they will be able to accept her there. A follow up CT scan this morning continues to show cavitary lesions in both lungs concerning for septic emboli, so we are going to continue with the vancomycin as she has been on. I have discussed the plan with Infectious Disease team. cc: Arnaud Bailey MD
[2019-07-02 17:44] LABS: BASO# 0.03 X1000 (0.0-0.2); BASO% 0.3 % (0.0-0.8); EOS# 0.13 X1000 (0.0-0.7); EOS% 1.5 % (0.0-10.0); HEMATOCRIT 26.6 % (37.0-47.0); HEMOGLOBIN 8.5 g/dL (12.0-16.0); IMM GRAN# 0.02 X1000 (0.0-0.04); IMM GRAN% 0.2 % (0.0-0.5); LYMPH# 1.97 X1000 (1.2-3.4); LYMPH% 22.8 % (20.5-51.1); MCH 27.2 PG (27-31); MONO# 0.68 X1000 (0.11-0.59); MONO% 7.9 % (1.7-9.3); MPV 7.8 FL (7.4-10.4); NEUT# 5.81 X1000 (1.4-6.5); NEUT% 67.3 % (42.2-75.2); PLT 745 X1000 (130-400); RBC 3.13 XMIL (4.2-5.4); RDW 13.9 % (11.5-14.5); WBC 8.64 X1000 (4.8-10.8)
[2019-07-02 18:08] LABS: AGAP 10; ALB/GLOB RATIO 0.8; ALBUMIN 3.5 g/dL (3.5-5.0); ALKALINE PHOSPHATASE 113 U/L (32-104); BUN 7 mg/dL (8-22); CALCIUM 9.8 mg/dL (8.8-10.2); CHLORIDE 98 mmol/L (98-107); COSMO 267; CREATININE 0.4 mg/dL (0.5-0.9); ESTIMATED GFR > 60; GLUCOSE 152 mg/dL (70-104); GOT 8 U/L (10-30); GPT 7 U/L (10-36); POTASSIUM 3.7 mmol/L (3.5-5.1); SODIUM 133 mmol/L (136-145); TCO2 25 mmol/L (25-35); TOTAL BILIRUBIN 0.33 mg/dL (0.20-1.00); TOTAL PROTEIN 7.9 g/dL (6.3-8.3)
[2019-07-02] MEDS ORDERED: DILAUDID IV ONE (18:48)
[2019-07-02] MEDS: SEROQUEL PO PRN (20:50)
[2019-07-02] MEDS: XANAX PO PRN (20:50)
[2019-07-02] MEDS: LOVENOX SUBQ SCH (20:54)
[2019-07-03] MEDS: OXY IR PO SCH ×7 (00:24→20:51)
[2019-07-03] MEDS: OXYCONTIN PO SCH ×3 (00:25→23:04)
[2019-07-03] MEDS: TYLENOL PO SCH ×4 (00:25→23:03)
[2019-07-03] MEDS: VANCOMYCIN 1.5 GM in NS 250 ML IV SCH ×3 (05:44→20:50)
[2019-07-03] MEDS: PRILOSEC PO SCH (07:00)
[2019-07-03] MEDS: DILAUDID IV PRN (07:45)
--- NOTE | 2019-07-03 08:04 | PROGRESS NOTE ---
DATE: 07/03/2019 SUBJECTIVE: This morning Ms. Malone refers to be doing okay but is hurting a little bit in the left in the leg. Otherwise, the night was uneventful. OBJECTIVE: Vital signs: Blood pressure is 105/59, pulse of 83, respirations 18, temperature 98.6 degrees. General: Ms. Malone is a 18-year-old female. She is in bed, no distress. There was a male partner on the bedside with her. HEENT: Mucosa is pink and moist. Anicteric. Acyanotic. Neck: Supple. Chest: Good air entry bilaterally. No crepitations. No rhonchi. Cardiovascular: Regular rate and rhythm. No murmurs, no rubs, no gallops. GI: Abdomen is soft, nontender. Bowel sounds present. Extremities: Right lower extremity is still in dressing. CAREER SERVICES ASSISTANT: Patient is sleepy but easily arousable and follows commands. LAB WORK: No lab work for this morning. ASSESSMENT: 1. Sepsis on presentation secondary to right ankle septic arthritis/osteomyelitis and multifocal pneumonia. All of them under control. 2. MRSA bacteremia resolved. 3. Multifocal pneumonia secondary to septic emboli. A JAMARCUS was negative for endocarditis. The patient is currently on IV vancomycin. 4. History of substance abuse. The patient has been counseled. Disposition. I understand from the health social work professor notes that every avenue has been exhausted for Ms. Malone to be sent to SNF for antimicrobial therapy and observation. Most rehab and SNF places have declined her because of her history of drug abuse. I think the only option is for her to go home. I am waiting for her antimicrobial to be arranged and for her mother to come in and I will discuss with her responsibility of taking care of the line at home. cc: Arnaud Bailey MD [facility]
[2019-07-03] MEDS: RIFAMPIN PO SCH (09:28)
[2019-07-03] MEDS: XANAX PO PRN (14:39)
[2019-07-03] MEDS: ICAR-C PO SCH (20:50)
[2019-07-03] MEDS: LOVENOX SUBQ SCH (20:50)
[2019-07-03] MEDS: SEROQUEL PO PRN (21:38)
[2019-07-04] MEDS: OXY IR PO SCH ×6 (01:04→20:17)
[2019-07-04] MEDS: PRILOSEC PO SCH ×2 (05:12→06:55)
[2019-07-04] MEDS: VANCOMYCIN 1.5 GM in NS 250 ML IV SCH (05:12)
[2019-07-04] MEDS: DILAUDID IV PRN ×2 (06:12→15:33)
--- NOTE | 2019-07-04 07:47 | GASTROENTEROLOGY CONSULTATION ---
DATE: 07/03/2019 ATTENDING PHYSICIAN: Dr. Bailey. PRIMARY CARE DOCTOR: Dr. Jes Coles. REASON FOR CONSULTATION: Positive hepatitis C PCR. HISTORY OF PRESENT ILLNESS: Ms. Malone is a 18-year-old female, who was admitted on [facility] on 06/20/2019, for right foot pain and swelling. She was diagnosed with septic arthritis. She has history of active polysubstance abuse, including cannabinoids, tricyclics, and IV heroin abuse. During the course of hospital stay, she was treated for leukocytosis, bacteremia, left lower lobe pneumonia, polysubstance abuse, and septic arthritis. As a part of the workup, her hepatitis C serologies were done, which were positive for hepatitis C antibody. Initial hepatitis C PCR showed 89 IU/per mL of hepatitis C on 06/25/2019, and other labs showed negative HIV, negative chlamydia, negative gonorrhea. Gastroenterology consult is requested for further management of hepatitis C. PAST MEDICAL HISTORY: 1. Psychiatric problems. 2. Polysubstance abuse. 3. Septic arthritis. 4. Pneumonia. PAST SURGICAL HISTORY: Tonsillectomy. FAMILY HISTORY: Noncontributory. SOCIAL HISTORY: She lives with family. She smokes half a pack of cigarettes a day. She denies any alcohol abuse. Her urine drug screen is positive for tricyclics, cannabinoids. She has a history of heroin abuse with a noted needle cherise to her right AC. This was done on the initial exam at admission. REVIEW OF SYSTEMS: Denies any fevers, rigors, chills, chest pain, shortness of breath, dyspnea. Denies any vomiting blood. Denies any blood in the stools. She does have pain in the right foot. She denies any neurological complaints. PHYSICAL EXAMINATION: Vitals: Temperature of 98.5 degrees, pulse rate of 90, respiratory rate of 16, blood pressure 127/68, saturating 90% on room air. Body weight of 143 pounds, BMI 23.8 kg. General: Thinly built, lying in bed, in no acute distress. HEENT: Pale conjunctivae. No icterus. Pupils equal, reactive to light. Neck: Supple. Abdomen: Soft, nontender. No guarding or rebound. Extremities: No cyanosis or clubbing. She has a dressing over the right lower extremity, right foot. Neurologic: She is alert, awake, oriented x3. LABORATORY: No labs were done today. Laboratories from yesterday showed hemoglobin and hematocrit of 8.5 and 36.6, white count of 8.64, platelet count of 745,000. Sodium of 130, potassium 3.7, chloride of 98, bicarbonate of 25, anion gap 10, BUN of 7, creatinine of 0.4, glucose of 132, calcium is 9.8. Total bilirubin is 0.33, AST 8, ALT 7, alkaline phosphatase 113, total protein is 7.9, albumin of 3.5. HIV RNA quantitative is undetected. Hepatitis panel was positive for hepatitis C antibody and hepatitis C RNA is 89 IU/mL. Blood culture at this time is negative out at 5 days from 06/27/2019. Sputum culture on 06/26/2019, showed sparse growth of normal robe. Prior to that, her blood culture growing Staph aureus. IMPRESSION AND PLAN: 1. Sepsis secondary to right ankle septic arthritis/osteomyelitis and multifocal pneumonia. She is being treated by the primary care team and she is on antibiotics. 2. Methicillin-resistant Staphylococcus aureus bacteremia, resolved. 3. Multifocal pneumonia secondary to septic emboli. Transesophageal echocardiogram was negative for endocarditis. The patient is on IV vancomycin. 4. History of polysubstance abuse. The patient is getting counseling per the primary team. 5. Positive hepatitis C antibody and positive hepatitis C PCR with a very low viral load. Most likely, she will clear it on her own. We will repeat those tests as an outpatient. We will check a viral genotype today. 6. Anemia. Continue to watch for now. Transfuse as needed. 7. Deep venous thrombosis prophylaxis with Lovenox. 8. Gastrointestinal prophylaxis with proton pump inhibitors in the form of Prilosec once daily. 9. Pain control with intravenous Dilaudid. 10. Bowel regimen. She is moving her bowels. If needed, she may need Syl- Colace once daily. MEDICATIONS IN HOSPITAL INCLUDE: 1. Tylenol. 2. Xanax. 3. Lovenox. 4. Dilaudid 2 mg IV daily as needed. 5. Prilosec 40 mg daily. 6. Zofran 4 mg IV q.4 hours. 7. Oxycodone extended release 20 mg b.i.d. 8. Oxycodone extended release 5 mg every 4 hours. 9. Vancomycin as directed. 10. Seroquel 50 mg once daily at bedtime. 11. Vantin 600 mg once daily. 12. Vancomycin 1.5 g IV q.8 hours. DIET: Patient is on a regular diet. Above plan was discussed with the patient and all questions answered. Please call us with any further questions. The patient will follow up in the clinic. cc: MD Jesse Roblero MD [facility]
[2019-07-04] MEDS: CENTRUM SILVER PO SCH (08:14)
[2019-07-04] MEDS: TYLENOL PO SCH ×2 (08:14→16:35)
[2019-07-04] MEDS: ICAR-C PO SCH ×2 (08:15→20:18)
[2019-07-04] MEDS: RIFAMPIN PO SCH (08:15)
[2019-07-04] MEDS: ZOFRAN IV PRN (08:21)
[2019-07-04] MEDS: OXYCONTIN PO SCH (11:23)
--- NOTE | 2019-07-04 11:56 | Diag Imaging Result Doc PS360 ---
EXAM: US ABDOMEN-COMPLETE - 07/04/2019 HISTORY: Hepatitis C, H/o IVDA TECHNIQUE: Ultrasound abdomen COMPARISON: None. FINDINGS: There are no abnormalities of the liver or spleen identified. Doppler image shows hepatopedal flow in the portal vein. There is no ascites seen. There are several small gallstones in the gallbladder. The gallbladder juárez do not appear thickened. The technologist reports negative sonographic Dickson's sign. The common bile duct is normal caliber at 3 mm. Visualized portions of the pancreas are unremarkable. There are no discrete abnormalities of the bilateral kidneys identified. Abdominal aorta and IVC appear normal caliber. IMPRESSION: No visible liver lesion. Small gallstones in gallbladder. Normal caliber common bile duct at 3 mm. Electronically signed by Howard Cunningham 07/04/2019 11:53 AM
--- NOTE | 2019-07-04 12:13 | PROGRESS NOTE ---
DATE: 07/04/2019 SUBJECTIVE: This morning, Ms. Malone referred to be doing okay. No complaints. She was actually requesting to know when she can be discharged. She is breathing well. OBJECTIVE: Vital Signs: Blood pressure is 100/64, pulse of 109, respirations are 16, temperature is 98.0 degrees. General Examination: Ms. Malone is a 18-year-old, female. She is in bed. No distress. HEENT: Mucosa is pink and moist. Anicteric. Acyanotic. Neck: Supple. Chest: Clear to auscultation. No crepitations. No rhonchi. Cardiovascular: Regular rate and rhythm. Abdomen: Soft, nontender. Bowel sounds present. Extremities: Right lower extremity has a sterile dressing over the ankle. FEEDER CATCHER TOBACCO: The patient is awake, alert, and oriented. There is no lab work for this morning. ASSESSMENT: 1. Sepsis on presentation secondary to right ankle septic arthritis/osteomyelitis and multifocal pneumonia. 2. Methicillin-resistant Staphylococcus aureus bacteremia, resolved. Subsequent blood cultures have been negative. 3. Multifocal pneumonia secondary to septic emboli. A transesophageal echocardiogram was negative for endocarditis. The patient is currently on intravenous vancomycin. 4. History of substance abuse. Patient has been counseled. PLAN: I think Ms. Malone is not clinically stable that she can be discharged. She has been declined to any of the major SNF facilities around because of her history of IV drug abuse in the past. We are pending final recommendations from infectious disease and discussion with the mother to be responsible for the line so we can discharge Ms. Malone. I think she can be discharged today if that is okay with infectious disease. cc: Arnaud Bailey MD
[2019-07-04] MEDS: XANAX PO PRN (12:18)
--- NOTE | 2019-07-04 14:37 | INFECTIOUS DISEASE PROGRESS NO ---
DATE: 07/04/2019 Patient has a methicillin-resistant Staph aureus bacteremia, pneumonia, and septic arthritis and osteomyelitis of the right ankle. The patient is being discharged on vancomycin 1.35 g IV every 8 hours to be supplied by [facility] and also rifampin 600 mg p.o. daily. She has approximately 50 days left of treatment. Plan is to treat her for a total of 8 weeks. The patient will be at home with her mother or when the mother is not available, she will be with her father. The patient will have continuous supervision with her antibiotic treatment. I have requested that the patient have a return appointment in my office in 25 days. It will be best to follow the patient's lung infection with a CT scan done without any IV contrast rather than an x-ray. cc: Rome Frederick MD [facility]
[2019-07-04] MEDS: VANCOMYCIN 1,350 MG in NS 250 ML IV SCH (16:21)
--- NOTE | 2019-07-04 16:30 | DISCHARGE SUMMARY ---
ADMISSION DATE: 06/20/2019 DISCHARGE DATE: 07/04/2019 DISPOSITION: Home with home health. FOLLOW-UP: 1. Dr. Frederick. 2. Dr. Elizondo. 3. Dr. Sukhi South. 4. [facility]. CONSULTATION DURING THIS ADMISSION: Orthopedics was consulted. Patient was seen by Dr. Bruno. ID was consulted. Patient was seen by Dr. Frederick. Cardiology was consulted. Patient was seen by Dr. Goodrich. INVASIVE PROCEDURES DONE DURING THIS ADMISSION: 1. Right ankle irrigation and debridement was done by Dr. Bruno on 06/23/2019. 2. A central line placement was also done some time by Dr. Arnold on 06/27/2019. Subsequently, a PICC line was placed. 3. JAMARCUS was done by Dr. Goodrich. IMAGING STUDIES OF SIGNIFICANCE: 1. Ankle x-ray shows soft tissue swelling. 2. An MRI of the lower extremity did show lateral soft tissue edema, fibular marrow edema consistent with osteomyelitis. 3. A TTE was unremarkable. A CT scan of the chest reveal multiple pleural-based nodules bilateral, suggestion of septic emboli. Ultrasound of the abdomen was unremarkable. ADMISSION DIAGNOSES: 1. Septic arthritis. 2. Bacteremia. 3. Leukocytosis. 4. Left lower lobe pneumonia. 5. Substance abuse. DIAGNOSES AT THE TIME OF DISCHARGE: 1. Sepsis on presentation secondary to right ankle septic arthritis/osteomyelitis/multifocal pneumonia. 2. MRSA bacteremia. 3. Multifocal pneumonia secondary to septic emboli. 4. History of polysubstance IV drug abuse. 5. MRSA septic arthritis with osteomyelitis. 6. Hepatitis C. The patient needs to follow up with GI. DISCHARGE MEDICATIONS: 1. Oxycodone 5 mg p.o. q. 4. 2. Oxycodone ER 20 mg p.o. q. 12. 3. Omeprazole 40 mg p.o. daily. 4. Xanax 0.5 mg p.o. q. 8 h. 5. Rifampin 600 mg p.o. daily. 6. Multivitamin. 7. Iron. 8. Seroquel 50 mg p.o. at bedtime. PRESENTING COMPLAINT: Right foot pain and swelling. HISTORY OF PRESENTING COMPLAINT: Ms. Malone is a 18-year-old female who presented initially to [facility] because of 4-day history of progressively worsening pain. Initial investigation revealed urine toxicology positive for tricyclics, cannabinoids. X-rays were reviewed. The patient was found to have septic arthritis and possible pneumonia and bacteremia was admitted. Was transferred from [place] to [facility] for medical care. HOSPITAL COURSE: Ms. Malone was admitted to the medical floor. Orthopedic was consulted. Patient was seen by Dr. Bruno. Surgery was performed on the right ankle where abscess was drained. Culture came back positive for MRSA. Patient was subsequently placed on the right antimicrobial coverage. ID was consulted. The patient also had blood cultures which were positive. A CT scan did show multifocal pneumonia, which was concerning for embolic phenomena, so a JAMARCUS was pursued since the TTE was negative. The JAMARCUS did not also show endocarditis. Ms. Malone eventually got blood culture negative and a PICC line was eventually placed. She was medically stable. Her main complaints that held her for the most time in the hospital was because of her placement. Due to her drug use history, none of the [facility] institutions were willing to accept her there and eventually the mother made a decision that she was going to be responsible for the PICC line at home and that if she was not going to be there, Ms. Malone would be with the father and both of them will be more responsible. I personally also spoke multiple times with Ms. Malone and she did tell me that she was going to be more responsible with the line and will not use it for any other purpose except for the antimicrobial treatment. I have also spoken extensively about substance abuse and its long-term repercussions and the need for cessation. This morning Ms. Malone refers to be doing a lot better. Her vitals are stable. Blood pressure is 110/64, pulse of 109, respirations 15, temperature 98.0 degrees. She is in stable condition for discharge. Please refer to my progress note today. TIME SPENT: The time spent for discharge is 45 minutes. cc: MD Rome Mckeon MD Dr, Mikhail South
[2019-07-04] MEDS: LOVENOX SUBQ SCH (20:17)
[2019-07-04] MEDS: SEROQUEL PO PRN (20:18)
[2019-07-05] MEDS: OXYCONTIN PO SCH ×2 (01:01→11:51)
[2019-07-05] MEDS: VANCOMYCIN 1,350 MG in NS 250 ML IV SCH ×2 (01:02→09:00)
[2019-07-05] MEDS: TYLENOL PO SCH ×2 (01:02→09:01)
[2019-07-05] MEDS: OXY IR PO SCH ×4 (03:55→13:15)
[2019-07-05] MEDS: PRILOSEC PO SCH ×2 (05:13→06:34)
[2019-07-05] MEDS: DILAUDID IV PRN (05:52)
[2019-07-05] MEDS: ZOFRAN IV PRN (05:56)
[2019-07-05] MEDS: ICAR-C PO SCH (09:00)
[2019-07-05] MEDS: CENTRUM SILVER PO SCH (09:01)
[2019-07-05] MEDS: XANAX PO PRN (09:22)
[2019-07-05] MEDS: RIFAMPIN PO SCH (09:22)
[2019-07-05 11:57] VITALS: BP 127/87
--- NOTE | 2019-07-05 14:37 | GASTROENTEROLOGY PROGRESS NOTE ---
DATE: 07/05/2019 SUBJECTIVE: The patient is resting in bed. She is feeling better. She is eating well. She is moving her bowels. She denies any nausea or vomiting. She denies any blood in the stools. I discussed the results of hepatitis C. She has a very low viral load. We are awaiting the results of hepatitis C genotype. PHYSICAL EXAMINATION: Vital Signs: Temperature of 98.1 degrees, pulse rate of 114, respiratory rate of 20, blood pressure 98/52, saturating 100% on room air. Body weight of 143 pounds, BMI 23.8 kg/m2. General Appearance: Moderately built, moderately nourished, lying in bed, in no acute distress. HEENT: Pale conjunctivae. No icterus. Neck: Supple. Abdomen: Soft, nontender, nondistended. No guarding or rebound. Extremities: No cyanosis or clubbing. She has a dressing over her right lower extremity, right ankle. Neurologic: She is alert, awake, oriented x3. LABS: No labs were done today. A random vancomycin was 20.1. The hepatitis C genotype is currently pending. Hepatitis C RNA is 89 international units use per mL. HIV is negative. Hepatitis panel is positive for hepatitis C antibody. IMPRESSION AND PLAN: 1. Septic arthritis, bacteremia, leukocytosis, and left lower lobe pneumonia. This is being managed by Dr. Rome Frederick. She had a right ankle irrigation and debridement by Dr. Bruno on 06/23/2019. Her MRI of the lower extremity showed evidence of lateral soft tissue edema and fibular marrow edema consistent with osteomyelitis. She had a TTE done by Dr. Goodrich which was unremarkable. Her CT scan of the chest showed evidence of multiple pleural-based nodules bilateral, suggestion of septic emboli. Ultrasound of the abdomen was unremarkable. She will continue on rifampin 600 mg once daily for a total of 8 weeks. She will be on vancomycin 1.35 g intravenous every 8 hours, to be supplied by [facility] for a total of 8 weeks. 2. Methicillin-resistant Staphylococcus aureus bacteremia. She is being treated by Dr. Frederick. 3. History of polysubstance intravenous drug abuse. The patient has been counseled to quit drugs completely. 4. Hepatitis C. We will follow the patient in 6 weeks after discharge. We will await the results of hepatitis C genotype. 5. Anemia. We will start the patient on Iron C twice a day and multivitamin once daily for anemia. She may need an outpatient endoscopy if she persists to be anemic. She was also counseled to avoid any nonsteroidal anti-inflammatory drugs. 6. The above plans were discussed with the patient and all questions were answered. Please call with any further questions. The patient will follow up in the clinic 6 weeks after discharge. cc: MD Sukhi Negro MD MTDD
--- NOTE | 2019-07-05 18:49 | DISCHARGE SUMMARY ---
ADMISSION DATE: 06/20/2019 DISCHARGE DATE: 07/05/2019 ADDENDUM: Ms. Malone was discharged actually yesterday. I understand because of some arrangement issues with the home health agency, she could not be discharged. She remains medically stable. This morning her vitals, blood pressure 127/87, pulse of 110, respirations 20, temperature 97.2 degrees. The patient was saturating 100% on room air. She is clinically stable. We think she is okay for discharge. All the arrangements have now been made. The patient's mother is not so responsible for the PICC line at this point. Please refer to the details of the discharge summary from yesterday in the chart. cc: Arnaud Bailey MD
[2019-07-07 16:14] LABS: HEPATITIS C GENOTYPE SEE COMMENTS
== END 2019-07-05 13:28 | disposition home or self-care (01) | DRG 853 ==
LOC: P.ED 16:35 → P.MEDSURG 20:12 → SUATTDRO 20:12 → P.ICU 06-22 09:39 → ICU 06-22 15:14 → 2N 06-25 11:28 → 4N 06-30 14:16
PROVIDERS: ATTEND Internal Medicine